=== PATIENT | male | born 1950 | race Caucasian/White ===

== ENCOUNTER 2019-12-20 17:42 | Inpatient (IN) | payer MEDICARE, MEDICAID ==
[~2019-12-20] VITALS: Ht 182.9 cm; Wt 77.2 kg
[2019-12-20] MEDS ORDERED: ACETAMINOPHEN 650 MG SUPP.RECT RC ONE ×4 (18:15→20:45)
[2019-12-20] MEDS ORDERED: ACETAMINOPHEN 325 MG SUPP RC ONE (18:15)
[2019-12-20 18:35] LABS: BASOPHILS # (AUTO) 0.1 K/uL (0.0-8.0); BASOPHILS % (AUTO) 0.4 % (0.0-2.0); EOSINOPHILS # (AUTO) 0.1 K/uL (0.0-0.7); EOSINOPHILS % (AUTO) 0.5 % (0.0-7.0); HEMATOCRIT 35.5 % (36.7-47.1); HEMOGLOBIN 11.6 g/dL (12.5-16.3); LYMPHOCYTES # (AUTO) 0.2 K/uL (20.0-40.0); LYMPHOCYTES % (AUTO) 1.6 % (20.5-51.5); MEAN CORPUSCULAR HEMOGLOBIN 31.8 uug (23.8-33.4); MEAN CORPUSCULAR HGB CONC 33 g/dL (32.5-36.3); MONOCYTES # (AUTO) 0.8 K/uL (2.0-10.0); MONOCYTES % (AUTO) 6.6 % (0.0-11.0); NEUTROPHILS # (AUTO) 10.9 K/uL (1.8-8.9); NEUTROPHILS % (AUTO) 90.9 % (38.5-71.5); PLATELET COUNT (AUTO) 155 K/uL (152-348); RED BLOOD CELL COUNT(AUTO) 3.66 MIL/uL (4.06-5.63)
[2019-12-20] MEDS ORDERED: DOCU100C36 PO (18:35)
[2019-12-20] MEDS ORDERED: GABA-532 PO (18:35)
[2019-12-20] MEDS ORDERED: FAMO-132 PO (18:35)
[2019-12-20] MEDS ORDERED: CALC-494 PO (18:35)
[2019-12-20] MEDS ORDERED: SENN-18 PO (18:35)
[2019-12-20] MEDS ORDERED: FINA5TAB11 PO (18:35)
[2019-12-20] MEDS ORDERED: AMIO200T4 PO (18:35)
[2019-12-20] MEDS ORDERED: CALC667T6 PO (18:35)
[2019-12-20] MEDS ORDERED: APIX5TAB4 PO (18:35)
[2019-12-20] MEDS ORDERED: TAMS-3 PO (18:35)
[2019-12-20] MEDS ORDERED: HYDR-4384 PO (18:35)
[2019-12-20] MEDS ORDERED: AMLO5TAB9 PO (18:35)
[2019-12-20] MEDS ORDERED: CARV3.122 PO (18:35)
[2019-12-20] MEDS ORDERED: CHOL200078 PO (18:35)
[2019-12-20] MEDS ORDERED: VIT1TABL46 PO (18:35)
[2019-12-20] MEDS ORDERED: PROT946L PO (18:35)
[2019-12-20] MEDS ORDERED: ONDA4TAB5 SL (18:35)
[2019-12-20 18:42] LABS: CREATININE 5.9 mg/dL (0.6-1.3); POTASSIUM 3.8 mmol/L (3.5-5.1)
[2019-12-20] MEDS ORDERED: ACETAMINOPHEN 325 MG SUPP ONE ×2 (18:42→20:46)
[2019-12-20 18:48] LABS: BILIRUBIN,DIRECT 0.1 mg/dL (0.0-0.2); BILIRUBIN,TOTAL 0.5 mg/dL (0.2-1.0); TOTAL PROTEIN, SERUM 7.6 g/dL (6.4-8.2)
[2019-12-20] MEDS ORDERED: IV NORMAL SALINE 1000 ML BAG IV ONE (19:15)
[2019-12-20] MEDS ORDERED: VANCOMYCIN IV 1,000 MG in IV DEXTROSE 5% 250 ML IV ONE (19:15)
[2019-12-20] MEDS ORDERED: PIPERACILLIN SODIUM/TAZOBACTAM 3.375 G in IV DEXTROSE 5% 50 ML IV ONE (19:15)
[2019-12-20] MEDS ORDERED: VANCOMYCIN IV 200 ML ONE (19:24)
[2019-12-20] MEDS ORDERED: PIPERACILLIN/TAZOBACTAM/D5W 50 ML IV ONE (19:24)
[2019-12-20] MEDS ORDERED: MORPHINE SULFATE 2 MG/1 ML DISP.SYRIN IV PRN (22:00)
[2019-12-20] MEDS ORDERED: MAGNESIUM HYDROXIDE 30 ML LIQUID UDC PO PRN (22:00)
[2019-12-20] MEDS ORDERED: Z GUARD REMEDY PASTE 57 GM TUBE TOP PRN (22:00)
[2019-12-20] MEDS ORDERED: HYDROCODONE/APAP 5-325MG TABLET PO PRN (22:00)
[2019-12-20] MEDS ORDERED: ONDANSETRON 4 MG/2 ML VIAL IV PRN (22:00)
[2019-12-20 22:20] LABS: *BILIRUBIN,URIN NEGATIVE (NEGATIVE); *CLARITY,URINE CLEAR (CLEAR); *COLOR,URINE YELLOW (YELLOW); *KETONES,URINE NEGATIVE (NEGATIVE); *UROBILINOGEN,URINE 0.2 E.U./dl (NORMAL); LEUKOCYTE ESTERASE ,URINE NEGATIVE (NEGATIVE); NITRITE, URINE NEGATIVE (NEGATIVE); PH,URINE 8.5 (5.0-8.0); UGLUCOSE TRACE (NEGATIVE)
[2019-12-20 22:28] LABS: *BLOOD, URINE TRACE (NEGATIVE)
[2019-12-20 22:29] LABS: SQUAMOUS EPITHELIAL CELL,UR MODERATE /HPF (NONE SEEN)
[2019-12-20 23:40] VITALS: BP 122/78
[2019-12-21 00:32] VITALS: BP 128/71
[2019-12-21] MEDS: ACETAMINOPHEN 325 MG TABLET PO PRN ×2 (01:25→16:33)
[2019-12-21] MEDS ORDERED: PIPERACILLIN SODIUM/TAZOBACTAM 3.375 G in IV DEXTROSE 5% 50 ML IV SCH (03:00)
[2019-12-21 04:50] VITALS: BP 103/55
[2019-12-21 06:39] LABS: BASOPHILS % (AUTO) 0.2 % (0.0-2.0); HEMATOCRIT 33.6 % (36.7-47.1); HEMOGLOBIN 11.2 g/dL (12.5-16.3); LYMPHOCYTES # (AUTO) 0.7 K/uL (20.0-40.0); LYMPHOCYTES % (AUTO) 4.3 % (20.5-51.5); MEAN CORPUSCULAR HEMOGLOBIN 32.4 uug (23.8-33.4); MEAN CORPUSCULAR HGB CONC 33 g/dL (32.5-36.3); MEAN CORPUSCULAR VOLUME 96.9 fL (73.0-96.2); MONOCYTES # (AUTO) 1.1 K/uL (2.0-10.0); MONOCYTES % (AUTO) 6.8 % (0.0-11.0); NEUTROPHILS # (AUTO) 13.8 K/uL (1.8-8.9); NEUTROPHILS % (AUTO) 88.7 % (38.5-71.5); PLATELET COUNT (AUTO) 155 K/uL (152-348); RED BLOOD CELL COUNT(AUTO) 3.46 MIL/uL (4.06-5.63); WHITE BLOOD COUNT (AUTO) 15.5 K/uL (3.6-10.2)
[2019-12-21 07:25] LABS: MAGNESIUM 1.9 mg/dL (1.8-2.4); PHOSPHOROUS 4.8 mg/dL (2.5-4.9); POTASSIUM 4.4 mmol/L (3.5-5.1)
[2019-12-21] MEDS ORDERED: PIPERACILLIN/TAZO 0.75 G in IV DEXTROSE 5% 50 ML IV PRN (07:30)
[2019-12-21 07:33] LABS: CREATININE 7.7 mg/dL (0.6-1.3)
[2019-12-21] MEDS: CALCIUM ACETATE 667 MG CAPSULE PO SCH ×3 (08:14→16:32)
[2019-12-21] MEDS: TAMSULOSIN HCL 0.4 MG CAP.SR.24H PO SCH ×2 (08:14→16:33)
[2019-12-21] MEDS: CHOLECALCIFEROL 1,000 UNIT TABLET PO SCH (08:14)
[2019-12-21] MEDS: AMIODARONE HCL 200 MG TABLET PO SCH ×2 (08:14→16:33)
[2019-12-21] MEDS: DOCUSATE SODIUM 100 MG CAPSULE PO SCH (08:14)
[2019-12-21] MEDS: FOLIC ACID/VITAMIN B COMP W-C TABLET PO SCH (08:15)
[2019-12-21] MEDS: FAMOTIDINE 20 MG TABLET PO SCH (08:15)
[2019-12-21] MEDS: FINASTERIDE 5 MG TABLET PO SCH (08:15)
[2019-12-21] MEDS: CALCIUM CARBONATE 500 MG TABLET PO SCH ×3 (08:15→16:33)
[2019-12-21] MEDS: GABAPENTIN 100 MG CAPSULE PO SCH ×3 (08:15→16:32)
[2019-12-21] MEDS: AMLODIPINE 5 MG TABLET PO SCH (08:16)
[2019-12-21] MEDS: CARVEDILOL 3.125 MG TABLET PO SCH ×2 (08:16→16:32)
[2019-12-21] MEDS: PROTEIN SUPPLEMENT (PROSTAT) 30 ML LIQUID PO SCH ×2 (08:18→16:33)
[2019-12-21] MEDS: PIPERACILLIN/TAZO 2.25 G in IV DEXTROSE 5% 50 ML IV SCH ×3 (08:20→22:04)
[2019-12-21] MEDS ORDERED: APIXABAN 5 MG TABLET PO SCH ×2 (09:00)
[2019-12-21] MEDS ORDERED: Medication Not On Formulary EA (Protein Supplement (Promod) 30 ML) PO SCH (09:00)
[2019-12-21] MEDS ORDERED: Medication Not On Formulary EA (Apixaban (Eliquis) 5 MG) PO SCH (09:00)
[2019-12-21] MEDS ORDERED: DEXTROSE 50% 50 ML DISP.SYRIN IV PRN (10:45)
[2019-12-21 11:05] VITALS: BP 134/72
[2019-12-21] MEDS: BLOOD SUGAR DIAGNOSTIC 1 EACH STRIP VI SCH ×3 (11:44→20:38)
[2019-12-21 15:14] VITALS: BP 103/61
[2019-12-21] MEDS: INSULIN REGULAR, HUMAN 300 UNIT/3 ML VIAL SQ PRN (16:30)
[2019-12-21] MEDS: APIXABAN 5 MG TABLET PO SCH (16:31)
[2019-12-21 20:00] VITALS: BP 90/47
[2019-12-21] MEDS: SENNOSIDES 1 TABLET PO SCH (20:24)
[2019-12-22] VITALS: BP 110/54
[2019-12-22 04:00] VITALS: BP 125/68
[2019-12-22] MEDS: PIPERACILLIN/TAZO 2.25 G in IV DEXTROSE 5% 50 ML IV SCH ×2 (05:37→13:05)
[2019-12-22 06:40] LABS: MAGNESIUM 2.1 mg/dL (1.8-2.4); PHOSPHOROUS 5.6 mg/dL (2.5-4.9); POTASSIUM 4.5 mmol/L (3.5-5.1)
[2019-12-22] MEDS: BLOOD SUGAR DIAGNOSTIC 1 EACH STRIP VI SCH ×4 (06:54→21:56)
[2019-12-22 07:02] LABS: BASOPHILS # (AUTO) 0.2 K/uL (0.0-8.0); BASOPHILS % (AUTO) 2.9 % (0.0-2.0); EOSINOPHILS # (AUTO) 0.2 K/uL (0.0-0.7); EOSINOPHILS % (AUTO) 3.8 % (0.0-7.0); HEMATOCRIT 32.3 % (36.7-47.1); LYMPHOCYTES # (AUTO) 0.6 K/uL (20.0-40.0); MEAN CORPUSCULAR HEMOGLOBIN 32.8 uug (23.8-33.4); MEAN CORPUSCULAR HGB CONC 34 g/dL (32.5-36.3); MEAN CORPUSCULAR VOLUME 95.8 fL (73.0-96.2); MONOCYTES # (AUTO) 0.6 K/uL (2.0-10.0); MONOCYTES % (AUTO) 10.5 % (0.0-11.0); NEUTROPHILS # (AUTO) 4.5 K/uL (1.8-8.9); NEUTROPHILS % (AUTO) 72.8 % (38.5-71.5); PLATELET COUNT (AUTO) 154 K/uL (152-348); RED BLOOD CELL COUNT(AUTO) 3.37 MIL/uL (4.06-5.63); WHITE BLOOD COUNT (AUTO) 6.1 K/uL (3.6-10.2)
[2019-12-22] MEDS: FAMOTIDINE 20 MG TABLET PO SCH (08:40)
[2019-12-22] MEDS: TAMSULOSIN HCL 0.4 MG CAP.SR.24H PO SCH ×2 (08:41→17:05)
[2019-12-22] MEDS: DOCUSATE SODIUM 100 MG CAPSULE PO SCH (08:41)
[2019-12-22] MEDS: CALCIUM ACETATE 667 MG CAPSULE PO SCH ×3 (08:41→17:05)
[2019-12-22] MEDS: CHOLECALCIFEROL 1,000 UNIT TABLET PO SCH (08:41)
[2019-12-22] MEDS: FOLIC ACID/VITAMIN B COMP W-C TABLET PO SCH (08:41)
[2019-12-22] MEDS: GABAPENTIN 100 MG CAPSULE PO SCH ×3 (08:42→17:04)
[2019-12-22] MEDS: FINASTERIDE 5 MG TABLET PO SCH (08:42)
[2019-12-22] MEDS: CALCIUM CARBONATE 500 MG TABLET PO SCH ×3 (08:42→17:05)
[2019-12-22] MEDS: AMLODIPINE 5 MG TABLET PO SCH (08:44)
[2019-12-22] MEDS: AMIODARONE HCL 200 MG TABLET PO SCH ×2 (08:44→17:03)
[2019-12-22] MEDS: CARVEDILOL 3.125 MG TABLET PO SCH ×2 (08:45→17:05)
[2019-12-22] MEDS: PROTEIN SUPPLEMENT (PROSTAT) 30 ML LIQUID PO SCH ×2 (08:46→17:07)
[2019-12-22] MEDS: APIXABAN 5 MG TABLET PO SCH ×2 (08:49→17:06)
[2019-12-22 09:11] LABS: CREATININE 10.4 mg/dL (0.6-1.3)
[2019-12-22 11:06] VITALS: BP 115/53
[2019-12-22] MEDS: INSULIN REGULAR, HUMAN 300 UNIT/3 ML VIAL SQ PRN ×2 (12:12→17:08)
[2019-12-22] MEDS ORDERED: VANCOMYCIN IV 500 MG in IV DEXTROSE 5% 100 ML IV ONE (13:00)
[2019-12-22] MEDS: MUPIROCIN 2% OINT 22 GM TUBE NS SCH ×2 (14:03→20:12)
[2019-12-22 15:04] VITALS: BP 113/64
[2019-12-22] MEDS ORDERED: CEFEPIME HCL 1 G in IV DEXTROSE 5% 50 ML IV ONE (20:00)
[2019-12-22 20:22] VITALS: BP 112/62
[2019-12-22] MEDS: SENNOSIDES 1 TABLET PO SCH (20:27)
[2019-12-22] MEDS ORDERED: MUPIROCIN 2% OINT 22 GM TUBE NS SCH (21:00)
[2019-12-22] MEDS: INSULIN REGULAR, HUMAN 300 UNITS/3 ML VIAL SQ PRN (22:11)
[2019-12-23] VITALS: BP 138/74
[2019-12-23] MEDS ORDERED: VANCOMYCIN IV 500 MG in IV DEXTROSE 5% 100 ML IV ONE ×2
[2019-12-23 04:00] VITALS: BP 109/56
[2019-12-23] MEDS: BLOOD SUGAR DIAGNOSTIC 1 EACH STRIP VI SCH ×4 (07:59→21:04)
[2019-12-23] MEDS: MUPIROCIN 2% OINT 22 GM TUBE NS SCH ×2 (08:41→20:53)
[2019-12-23] MEDS: CALCIUM ACETATE 667 MG CAPSULE PO SCH ×3 (08:43→17:09)
[2019-12-23] MEDS: CHOLECALCIFEROL 1,000 UNIT TABLET PO SCH (08:44)
[2019-12-23] MEDS: FAMOTIDINE 20 MG TABLET PO SCH (08:44)
[2019-12-23] MEDS: TAMSULOSIN HCL 0.4 MG CAP.SR.24H PO SCH ×2 (08:44→16:34)
[2019-12-23] MEDS: GABAPENTIN 100 MG CAPSULE PO SCH ×3 (08:44→16:34)
[2019-12-23] MEDS: FOLIC ACID/VITAMIN B COMP W-C TABLET PO SCH (08:44)
[2019-12-23] MEDS: CALCIUM CARBONATE 500 MG TABLET PO SCH ×3 (08:44→17:09)
[2019-12-23] MEDS: FINASTERIDE 5 MG TABLET PO SCH (08:44)
[2019-12-23] MEDS: DOCUSATE SODIUM 100 MG CAPSULE PO SCH (08:44)
[2019-12-23] MEDS: AMLODIPINE 5 MG TABLET PO SCH (08:46)
[2019-12-23] MEDS: CARVEDILOL 3.125 MG TABLET PO SCH ×2 (08:46→16:35)
[2019-12-23] MEDS: AMIODARONE HCL 200 MG TABLET PO SCH ×2 (08:46→16:35)
[2019-12-23] MEDS: APIXABAN 5 MG TABLET PO SCH ×2 (08:51→16:34)
[2019-12-23] MEDS: PROTEIN SUPPLEMENT (PROSTAT) 30 ML LIQUID PO SCH ×2 (09:07→16:35)
[2019-12-23 11:10] LABS: MAGNESIUM 2.4 mg/dL (1.8-2.4); PHOSPHOROUS 5.6 mg/dL (2.5-4.9); POTASSIUM 4.8 mmol/L (3.5-5.1)
[2019-12-23 11:16] LABS: CREATININE 12.6 mg/dL (0.6-1.3)
[2019-12-23 11:29] VITALS: BP 105/53
[2019-12-23 11:32] LABS: BASOPHILS % (AUTO) 0.6 % (0.0-2.0); EOSINOPHILS # (AUTO) 0.4 K/uL (0.0-0.7); EOSINOPHILS % (AUTO) 8.5 % (0.0-7.0); HEMATOCRIT 30.5 % (36.7-47.1); HEMOGLOBIN 10.2 g/dL (12.5-16.3); LYMPHOCYTES # (AUTO) 0.7 K/uL (20.0-40.0); MEAN CORPUSCULAR HEMOGLOBIN 32.5 uug (23.8-33.4); MEAN CORPUSCULAR HGB CONC 34 g/dL (32.5-36.3); MEAN CORPUSCULAR VOLUME 97.1 fL (73.0-96.2); MONOCYTES # (AUTO) 0.7 K/uL (2.0-10.0); MONOCYTES % (AUTO) 13.9 % (0.0-11.0); PLATELET COUNT (AUTO) 164 K/uL (152-348); RED BLOOD CELL COUNT(AUTO) 3.14 MIL/uL (4.06-5.63); WHITE BLOOD COUNT (AUTO) 4.9 K/uL (3.6-10.2)
[2019-12-23] MEDS: INSULIN REGULAR, HUMAN 300 UNIT/3 ML VIAL SQ PRN ×2 (12:19→17:11)
[2019-12-23 15:36] VITALS: BP 119/68
[2019-12-23] MEDS ORDERED: CEFEPIME HCL 0.5 G in IV DEXTROSE 5% 50 ML IV SCH (20:00)
[2019-12-23 20:30] VITALS: BP 134/73
[2019-12-23] MEDS: SENNOSIDES 1 TABLET PO SCH (20:51)
[2019-12-23] MEDS: INSULIN REGULAR, HUMAN 300 UNITS/3 ML VIAL SQ PRN (21:11)
[2019-12-24 06:35] VITALS: BP 140/77
[2019-12-24] MEDS: BLOOD SUGAR DIAGNOSTIC 1 EACH STRIP VI SCH ×2 (06:54→11:20)
[2019-12-24 07:21] LABS: BASOPHILS % (AUTO) 0.7 % (0.0-2.0); EOSINOPHILS # (AUTO) 0.3 K/uL (0.0-0.7); EOSINOPHILS % (AUTO) 7.1 % (0.0-7.0); HEMATOCRIT 31.6 % (36.7-47.1); HEMOGLOBIN 10.6 g/dL (12.5-16.3); LYMPHOCYTES # (AUTO) 1.2 K/uL (20.0-40.0); LYMPHOCYTES % (AUTO) 25.3 % (20.5-51.5); MEAN CORPUSCULAR HEMOGLOBIN 32.2 uug (23.8-33.4); MEAN CORPUSCULAR HGB CONC 34 g/dL (32.5-36.3); MONOCYTES # (AUTO) 0.8 K/uL (2.0-10.0); MONOCYTES % (AUTO) 17.2 % (0.0-11.0); NEUTROPHILS # (AUTO) 2.3 K/uL (1.8-8.9); NEUTROPHILS % (AUTO) 49.7 % (38.5-71.5); PLATELET COUNT (AUTO) 175 K/uL (152-348); RED BLOOD CELL COUNT(AUTO) 3.29 MIL/uL (4.06-5.63); WHITE BLOOD COUNT (AUTO) 4.6 K/uL (3.6-10.2)
[2019-12-24 07:34] LABS: MAGNESIUM 2.5 mg/dL (1.8-2.4); PHOSPHOROUS 4.4 mg/dL (2.5-4.9); POTASSIUM 5.1 mmol/L (3.5-5.1)
[2019-12-24 07:39] LABS: CREATININE 10.3 mg/dL (0.6-1.3)
[2019-12-24 07:59] LABS: EOSINOPHILS % (MANUAL) 5 % (0-8); LYMPHOCYTES % (MANUAL) 31 % (20-40); MONOCYTES % (MANUAL) 13 % (2-10); NEUTROPHILS % (MANUAL) 51 % (42-75)
[2019-12-24] MEDS: DOCUSATE SODIUM 100 MG CAPSULE PO SCH (08:33)
[2019-12-24] MEDS: TAMSULOSIN HCL 0.4 MG CAP.SR.24H PO SCH (08:34)
[2019-12-24] MEDS: FOLIC ACID/VITAMIN B COMP W-C TABLET PO SCH (08:34)
[2019-12-24] MEDS: FINASTERIDE 5 MG TABLET PO SCH (08:34)
[2019-12-24] MEDS: GABAPENTIN 100 MG CAPSULE PO SCH ×2 (08:34→12:01)
[2019-12-24] MEDS: CALCIUM ACETATE 667 MG CAPSULE PO SCH ×2 (08:34→11:50)
[2019-12-24] MEDS: PROTEIN SUPPLEMENT (PROSTAT) 30 ML LIQUID PO SCH (08:34)
[2019-12-24] MEDS: FAMOTIDINE 20 MG TABLET PO SCH (08:34)
[2019-12-24] MEDS: CHOLECALCIFEROL 1,000 UNIT TABLET PO SCH (08:34)
[2019-12-24] MEDS: CALCIUM CARBONATE 500 MG TABLET PO SCH ×2 (08:34→11:50)
[2019-12-24] MEDS ORDERED: RXVAN XX (08:35)
[2019-12-24] MEDS: AMLODIPINE 5 MG TABLET PO SCH (08:36)
[2019-12-24] MEDS: AMIODARONE HCL 200 MG TABLET PO SCH (08:36)
[2019-12-24] MEDS: CARVEDILOL 3.125 MG TABLET PO SCH (08:36)
[2019-12-24] MEDS: MUPIROCIN 2% OINT 22 GM TUBE NS SCH (08:37)
[2019-12-24] MEDS: APIXABAN 5 MG TABLET PO SCH (08:41)
[2019-12-24 11:27] VITALS: BP 131/66
[2019-12-24] MEDS: INSULIN REGULAR, HUMAN 300 UNIT/3 ML VIAL SQ PRN (12:01)
[2019-12-25 08:06] LABS: HEPATITIS B SURFACE AB Reactive (.); HEPATITIS B SURFACE AG Negative (Negative)
== END 2019-12-24 15:10 | DRG 871 ==
LOC: ER 17:46 → TELE3 21:58 → MEDSURG3 12-23 18:31
PROVIDERS: ADMIT Hospitalist; ATTEND Hospitalist
PROC: 5A1D70Z Performance of Urinary Filtration, Intermittent, Less than 6 Hours Per Day (ICD-10-PCS; principal; 2019-12-23)
DX: A41.02 Sepsis due to Methicillin resistant Staphylococcus aureus (principal); G92 Toxic encephalopathy; N18.6 End stage renal disease; I13.2 Hypertensive heart and chronic kidney disease with heart failure and with stage 5 chronic kidney disease, or end stage renal disease; I50.32 Chronic diastolic (congestive) heart failure; E87.1 Hypo-osmolality and hyponatremia; Z99.2 Dependence on renal dialysis; Z22.322 Carrier or suspected carrier of Methicillin resistant Staphylococcus aureus; E11.42 Type 2 diabetes mellitus with diabetic polyneuropathy; E11.65 Type 2 diabetes mellitus with hyperglycemia; E86.1 Hypovolemia; E11.22 Type 2 diabetes mellitus with diabetic chronic kidney disease; D63.8 Anemia in other chronic diseases classified elsewhere; I25.10 Atherosclerotic heart disease of native coronary artery without angina pectoris; I48.91 Unspecified atrial fibrillation; Z79.01 Long term (current) use of anticoagulants; Z88.0 Allergy status to penicillin; N40.0 Benign prostatic hyperplasia without lower urinary tract symptoms; I70.0 Atherosclerosis of aorta
CPT/HCPCS: 36415; 70030-TC; 70450; 71045; 83605; 83735; 84100; 84443; 85025; 85730; 86706; 86803; 87040; 87077; 87086; 87340; 87400; 90937; 93005; A4663; C1758; G0378; J0692; J1815; J2543; J3370; J7040; J7050; J7060

== ENCOUNTER 2020-11-04 18:15 | Inpatient (IN) | payer MEDICARE, OTHER ==
[~2020-11-04] VITALS: Ht 175.3 cm; Wt 83.1 kg
[~2020-11-04 18:15] MED LIST: ACET-2154 PO; ALBU2.5V13 IH; AMIO200T5 PO; CALC-494 PO; CALC667T6 PO; DOCU100C36 PO; EPOE1VIA6 IJ; FINA5TAB11 PO; GABA-532 PO; HUM100IN SQ; INSU100C4 SQ; INSU100I43 SQ; MAGN400O6 PO; MERO500V21 IV; NALO0.4V2 IJ; NITR0.4T SL; PROT946L PO; TAMS-3 PO; VIT1TABL46 PO; ZINC1CAP2 PO
--- NOTE | 2020-11-04 18:47 | NUR ---
Dr [email or web address], medical screening exam in progress
[2020-11-04] MEDS ORDERED: ASPI81TA31 PO (18:52)
[2020-11-04] MEDS ORDERED: CEFTRIAXONE 1 G in IV DEXTROSE 5% 50 ML IV ONE (19:00)
--- NOTE | 2020-11-04 19:11 | NUR ---
Patient is for blood draw, COVID-19 swab & urine specimen collection, endorsed to 7pm nurse Atul Orona accordingly
[2020-11-04 19:51] LABS: CARBON DIOXIDE 31 mmol/L (21-32); CHLORIDE 97 mmol/L (98-107); GLUCOSE 110 mg/dL (74-106); POTASSIUM 6.1 mmol/L (3.5-5.1); UREA NITROGEN, BLOOD 60 mg/dL (7-18)
[2020-11-04 19:56] LABS: BASOPHILS % (AUTO) 0.5 % (0.0-2.0); EOSINOPHILS % (AUTO) 0.8 % (0.0-7.0); HEMATOCRIT 37.9 % (36.7-47.1); HEMOGLOBIN 12.3 g/dL (12.5-16.3); LYMPHOCYTES # (AUTO) 0.9 K/uL (20.0-40.0); LYMPHOCYTES % (AUTO) 14.8 % (20.5-51.5); MEAN CORPUSCULAR HEMOGLOBIN 29.5 uug (23.8-33.4); MEAN CORPUSCULAR HGB CONC 32 g/dL (32.5-36.3); MEAN CORPUSCULAR VOLUME 90.9 fL (73.0-96.2); MONOCYTES % (AUTO) 17.4 % (0.0-11.0); NEUTROPHILS % (AUTO) 66.5 % (38.5-71.5); PLATELET COUNT (AUTO) 225 K/uL (152-348); RED BLOOD CELL COUNT(AUTO) 4.17 MIL/uL (4.06-5.63)
[2020-11-04 19:59] LABS: CREATININE 10.2 mg/dL (0.6-1.3)
[2020-11-04] MEDS ORDERED: AZITHROMYCIN IV 500 MG in IV DEXTROSE 5% 250 ML IV ONE (20:00)
[2020-11-04 20:10] LABS: ALANINE AMINOTRANSFERASE 41 U/L (16-63); ALKALINE PHOSPHATASE 74 U/L (50-136); ASPARTATE AMINOTRANSFERASE 18 U/L (15-37); BILIRUBIN,TOTAL 0.8 mg/dL (0.2-1.0); FERRITIN 889 ng/mL (26-388); LACTATE DEHYDROGENASE 174 U/L (85-227); TOTAL PROTEIN, SERUM 6.8 g/dL (6.4-8.2)
[2020-11-04 20:11] LABS: CREATINE KINASE, TOTAL 44 U/L (39-308)
[2020-11-04] MEDS ORDERED: CEFTRIAXONE 1 G VIAL ONE (20:41)
[2020-11-04] MEDS ORDERED: MEROPENEM 500MG/NS 50ML PB ***ER PYXIS ONLY IV ONE (20:42)
[2020-11-04] MEDS ORDERED: AZITHROMYCIN 500MG/ D5W 250ML IVPB **ER PYXIS ONLY IV ONE (20:42)
--- NOTE | 2020-11-04 20:52 | NUR ---
Eloisa Car DNP paged, and called back to discuss patient case for inpatient admission.
[2020-11-04] MEDS ORDERED: SODIUM BICARBONATE 8.4% 50 MEQ/50 ML VIAL IV ONE (21:00)
[2020-11-04] MEDS ORDERED: HYDROCODONE/APAP 5-325MG TABLET PO PRN (21:00)
[2020-11-04] MEDS: HEPARIN SODIUM,PORCINE 5,000 UNITS/ML VIAL SQ SCH (21:00)
[2020-11-04] MEDS ORDERED: SODIUM POLYSTYRENE SULFONATE 15 G/60 ML LIQUID UDC PO ONE (21:00)
[2020-11-04] MEDS ORDERED: DEXTROSE 50% 50 ML DISP.SYRIN IV ONE (21:00)
[2020-11-04] MEDS ORDERED: INSULIN REGULAR, HUMAN 300 UNIT/3 ML VIAL IV ONE (21:00)
[2020-11-04] MEDS ORDERED: ONDANSETRON 4 MG/2 ML VIAL IV PRN (21:00)
[2020-11-04] MEDS: MEROPENEM 500 MG in IV NORMAL SALINE 50 ML IV SCH (21:13)
[2020-11-04] MEDS ORDERED: CALCIUM GLUCONATE IV 1 GM in IV DEXTROSE 5% 50 ML IV ONE (21:15)
--- NOTE | 2020-11-04 21:17 | NUR ---
Patient will be going to 306, bed is not clean per DIVINE Dhillon. She will have room prepared stat.
[2020-11-04 21:27] LABS: *BILIRUBIN,URIN NEGATIVE (NEGATIVE); *BLOOD, URINE 3+ (NEGATIVE); *CLARITY,URINE CLOUDY (CLEAR); *COLOR,URINE PINK (YELLOW); *KETONES,URINE NEGATIVE (NEGATIVE); *UROBILINOGEN,URINE 0.2 E.U./dl (NORMAL); LEUKOCYTE ESTERASE ,URINE 3+ (NEGATIVE); NITRITE, URINE NEGATIVE (NEGATIVE); UGLUCOSE NEGATIVE (NEGATIVE)
[2020-11-04] MEDS ORDERED: CALCIUM GLUCONATE 1 GM/10 ML VIAL IV ONE (21:39)
[2020-11-04] MEDS ORDERED: SODIUM BICARBONATE 8.4% 50 MEQ/50 ML DISP.SYRIN IV ONE (21:40)
--- NOTE | 2020-11-04 22:09 | NUR ---
Patient oral temp is 101.4F. ERMD aware, and stated to administer 1G of acetaminophen.
[2020-11-04] MEDS ORDERED: ACETAMINOPHEN ES 500 MG TABLET PO ONE (22:15)
[2020-11-04] MEDS ORDERED: ACETAMINOPHEN ES 500 MG TABLET ONE (22:16)
--- NOTE | 2020-11-04 22:41 | NUR ---
Report given to DIVINE Luna for TELE admission.
--- NOTE | 2020-11-04 23:21 | NUR ---
Patient transported to TELE in stable condition.
--- NOTE | 2020-11-04 23:23 | NUR ---
RECEIVED PT FROM ER VIA MG. DX: UTI UNDER THE CARE OF HUSSEIN BARBOUR. PT IN NO ACUTE DISTRESS. PT ON 2L NASAL CANNULA. ADMISSION PROCESS AND PROCESS PLAN INITIATED. HEMODIALYSIS CONSENT FORM SIGNED. BELONGING LIST SIGNED. POLST IN CHART AND PT IS FULL CODE.PT HAS LEFT UPPER ARM AV SHUNT- THRILL AND BRUIT NOTED. IV SITE ON RIGHT HAND 20G AND RIGHT FA 20G. LONG TERM ASSESSMENT DONE.SAFETY AND COMFORT PROVIDED. WILL CONTINUE TO MONITOR.
--- NOTE | 2020-11-04 23:24 | NUR ---
PT FEBRILE WITH 100.3F . COOLING MEASURES DONE. TYLENOL WAS JUST GIVEN IN ER.
[2020-11-04 23:26] VITALS: BP 99/51
[2020-11-04] MEDS: IV NS 1000 ML 1,000 ML IV PRN (23:37)
[2020-11-05 00:30] LABS: BAND % (MANUAL) 7 % (0-10); LYMPHOCYTES % (MANUAL) 22 % (20-40); MONOCYTES % (MANUAL) 7 % (2-10); NEUTROPHILS % (MANUAL) 64 % (42-75)
[2020-11-05] MEDS: ACETAMINOPHEN 325 MG TABLET PO PRN ×2 (02:08→11:11)
[2020-11-05 03:45] LABS: RBC,URINE TNTC /HPF (0-3)
[2020-11-05 03:46] LABS: BACTERIA,URINE MANY /HPF (NONE SEEN); SQUAMOUS EPITHELIAL CELL,UR NONE SEEN /HPF (NONE SEEN); WBC,URINE TNTC /HPF (0-3)
[2020-11-05 04:03] VITALS: BP 120/59
--- NOTE | 2020-11-05 06:50 | NUR ---
PT SLEPT INTERMITTENTLY. PT IV INTACT. PT 2L ON 99%. PT IN NO ACUTE DISTRESS. PT NOTED TO HAVE CHILLS. GIVEN TYLENOL PRN LAST NIGHT. PT AFEBRILE AT 98.5 fAHRENHEIT.PRESCRIBED MEDICATION GIVEN AND PT TOLERATED IT WELL. PT CONTINENT. SAFETY AND COMFORT PROVIDED. ALL NEEDS ARE MET. WILL ENDORSE TO INCOMING NURSE FOR CONTINUITY OF CARE.
[2020-11-05 07:41] LABS: BASOPHILS % (AUTO) 0.6 % (0.0-2.0); EOSINOPHILS % (AUTO) 0.5 % (0.0-7.0); HEMATOCRIT 32.2 % (36.7-47.1); HEMOGLOBIN 10.6 g/dL (12.5-16.3); LYMPHOCYTES # (AUTO) 0.5 K/uL (20.0-40.0); LYMPHOCYTES % (AUTO) 11.3 % (20.5-51.5); MEAN CORPUSCULAR HEMOGLOBIN 29.9 uug (23.8-33.4); MEAN CORPUSCULAR HGB CONC 33 g/dL (32.5-36.3); MEAN CORPUSCULAR VOLUME 90.8 fL (73.0-96.2); MONOCYTES # (AUTO) 1.1 K/uL (2.0-10.0); MONOCYTES % (AUTO) 25.1 % (0.0-11.0); NEUTROPHILS # (AUTO) 2.6 K/uL (1.8-8.9); NEUTROPHILS % (AUTO) 62.5 % (38.5-71.5); PLATELET COUNT (AUTO) 185 K/uL (152-348); RED BLOOD CELL COUNT(AUTO) 3.54 MIL/uL (4.06-5.63); WHITE BLOOD COUNT (AUTO) 4.2 K/uL (3.6-10.2)
[2020-11-05 07:50] LABS: CARBON DIOXIDE 31 mmol/L (21-32); CHLORIDE 98 mmol/L (98-107); CHOLESTEROL 120 mg/dL (<200); GLUCOSE 81 mg/dL (74-106); HDL CHOLESTEROL 45 mg/dL (40-60); MAGNESIUM 2.2 mg/dL (1.8-2.4); PHOSPHOROUS 4.4 mg/dL (2.5-4.9); TRIGLYCERIDES 43 MG/DL (30-150); UREA NITROGEN, BLOOD 68 mg/dL (7-18)
[2020-11-05 08:17] LABS: CREATININE 10.9 mg/dL (0.6-1.3); POTASSIUM 6.2 mmol/L (3.5-5.1)
[2020-11-05 08:25] LABS: ABG BASE EXCESS 3.2 mmol/L; ABG PCO2 33.8 mmHg (35.0-45.0); ABG PH 7.504 (7.350-7.450); ABG PO2 66.3 mmHg (75.0-100.0); ABG SITE RIGHT RADIAL; ABG TOTAL HEMOGLOBIN 12.1 G/dL (13.5-18.0); MetHb 0.1 % (0.0-1.5); O2Hb 91.6 % (94.0-97.0); VENT MODE ROOM AIR
[2020-11-05] MEDS: MEROPENEM 500 MG in IV NORMAL SALINE 50 ML IV SCH ×2 (08:34→20:26)
[2020-11-05] MEDS: HEPARIN SODIUM,PORCINE 5,000 UNITS/ML VIAL SQ SCH ×2 (08:43→22:07)
--- NOTE | 2020-11-05 09:12 | NUR ---
Informed Eloisa Car MERCHANDISE FLOW TEAM LEADER regarding potassium and creatinine results with no new order at this time. Reminded MERCHANDISE FLOW TEAM LEADER about medication reconciliation and said OK.
[2020-11-05 11:36] VITALS: BP 138/75
[2020-11-05] MEDS ORDERED: DOCUSATE SODIUM 100 MG CAPSULE PO PRN (13:45)
[2020-11-05] MEDS ORDERED: ALBUTEROL SULFATE 2.5 MG/ 0.5 ML NEBU IH PRN (13:45)
[2020-11-05] MEDS: ASPIRIN 81 MG TAB.CHEW PO SCH (14:47)
[2020-11-05] MEDS: FOLIC ACID/VITAMIN B COMP W-C TABLET PO SCH (14:47)
[2020-11-05] MEDS: FINASTERIDE 5 MG TABLET PO SCH (14:47)
[2020-11-05] MEDS: GABAPENTIN 100 MG CAPSULE PO SCH ×2 (14:47→17:53)
[2020-11-05] MEDS: CALCIUM ACETATE 667 MG CAPSULE PO SCH ×2 (14:47→17:53)
[2020-11-05] MEDS: AMIODARONE HCL 200 MG TABLET PO SCH (14:48)
[2020-11-05] MEDS: ZINC SULFATE 220 MG CAPSULE PO SCH (14:56)
[2020-11-05 15:44] VITALS: BP 144/71
--- NOTE | 2020-11-05 18:45 | NUR ---
Patient remains alert, oriented x 4, not in any form of distress on 2LPM via nasal cannula. No complain of any pain or discomfort. Hemodialysis done today removed 2L of fluid. Noted with episode of fever, given PRN tylenol as ordered with noted decrease in temperature. Needs attended to promptly. Call light and frequently used items placed within patient's reach. Will endorse accordingly.
--- NOTE | 2020-11-05 19:30 | NUR ---
Received pt awake and alert in bed. Denies any pain at this time. No SOB, pt is on 2L NC. SR on monitor. Will continue to monitor.
[2020-11-05 20:00] VITALS: BP 141/66
[2020-11-05] MEDS: TAMSULOSIN HCL 0.4 MG CAP.SR.24H PO SCH (22:04)
[2020-11-06 05:20] VITALS: BP 134/68
[2020-11-06 06:35] LABS: HEPATITIS B SURFACE AB Reactive (.); HEPATITIS B SURFACE AG Negative (Negative)
[2020-11-06] MEDS: CALCIUM ACETATE 667 MG CAPSULE PO SCH ×3 (07:05→18:10)
[2020-11-06] MEDS: MEROPENEM 500 MG in IV NORMAL SALINE 50 ML IV SCH ×2 (07:19→21:40)
[2020-11-06] MEDS: HEPARIN SODIUM,PORCINE 5,000 UNITS/ML VIAL SQ SCH ×2 (08:58→21:16)
[2020-11-06] MEDS: FOLIC ACID/VITAMIN B COMP W-C TABLET PO SCH (08:59)
[2020-11-06] MEDS: FINASTERIDE 5 MG TABLET PO SCH (08:59)
[2020-11-06] MEDS: ZINC SULFATE 220 MG CAPSULE PO SCH (08:59)
[2020-11-06] MEDS: ASPIRIN 81 MG TAB.CHEW PO SCH (08:59)
[2020-11-06] MEDS: GABAPENTIN 100 MG CAPSULE PO SCH (09:00)
[2020-11-06] MEDS: AMIODARONE HCL 200 MG TABLET PO SCH (09:00)
--- NOTE | 2020-11-06 09:45 | NUR ---
Pt is awake and alert in bed. Tolerated all medications well. Denies any discomfort at this time. On 2L NC and denies SOB. Will continue to monitor
[2020-11-06 10:31] LABS: BASOPHILS % (AUTO) 0.8 % (0.0-2.0); EOSINOPHILS # (AUTO) 0.2 K/uL (0.0-0.7); EOSINOPHILS % (AUTO) 5.8 % (0.0-7.0); HEMATOCRIT 29.8 % (36.7-47.1); HEMOGLOBIN 9.7 g/dL (12.5-16.3); LYMPHOCYTES # (AUTO) 0.7 K/uL (20.0-40.0); MEAN CORPUSCULAR HEMOGLOBIN 29.8 uug (23.8-33.4); MEAN CORPUSCULAR HGB CONC 33 g/dL (32.5-36.3); MONOCYTES # (AUTO) 0.8 K/uL (2.0-10.0); MONOCYTES % (AUTO) 23.7 % (0.0-11.0); NEUTROPHILS # (AUTO) 1.7 K/uL (1.8-8.9); NEUTROPHILS % (AUTO) 49.7 % (38.5-71.5); PLATELET COUNT (AUTO) 202 K/uL (152-348); RED BLOOD CELL COUNT(AUTO) 3.27 MIL/uL (4.06-5.63); WHITE BLOOD COUNT (AUTO) 3.5 K/uL (3.6-10.2)
[2020-11-06 10:33] LABS: CARBON DIOXIDE 30 mmol/L (21-32); CHLORIDE 102 mmol/L (98-107); GLUCOSE 77 mg/dL (74-106); MAGNESIUM 2.2 mg/dL (1.8-2.4); POTASSIUM 5.3 mmol/L (3.5-5.1); UREA NITROGEN, BLOOD 55 mg/dL (7-18)
[2020-11-06 10:44] LABS: CREATININE 9.6 mg/dL (0.6-1.3)
[2020-11-06 12:00] VITALS: BP 133/59
[2020-11-06 13:04] LABS: BAND % (MANUAL) 2 % (0-10); EOSINOPHILS % (MANUAL) 3 % (0-8); LYMPHOCYTES % (MANUAL) 32 % (20-40); MONOCYTES % (MANUAL) 10 % (2-10); NEUTROPHILS % (MANUAL) 53 % (42-75)
[2020-11-06] MEDS: IV NS 1000 ML 1,000 ML IV PRN (14:17)
--- NOTE | 2020-11-06 14:30 | NUR ---
Pt in bed resting. D/C off tele to Ms status. Pt is stable. On 2L NC with no s/s of respiratory distress. Denies any pain at this time. Some swelling noted in Right hand Hand has been elevated on pillows with seemed to be helping. Will endorse to oncoming nurse.
[2020-11-06 16:00] VITALS: BP 138/56
[2020-11-06] MEDS ORDERED: GABAPENTIN 300 MG CAPSULE PO SCH (16:00)
[2020-11-06 18:28] LABS: NEUTROPHILS % (MANUAL) 0 % (42-75)
--- NOTE | 2020-11-06 18:30 | NUR ---
Saline lock accidentally pulled out. Patient requested not to reinsert at this time. Endorsed for further care. Hemodialysis clarified to be done tomorrow
[2020-11-06 20:38] VITALS: BP 124/55
[2020-11-06] MEDS: TAMSULOSIN HCL 0.4 MG CAP.SR.24H PO SCH (21:15)
--- NOTE | 2020-11-06 23:22 | NUR ---
Received pt resting in bed and watching tv. AAO x4. No acute distress noted. Denies pain/ discomfort. Inserted IV on right upper arm gauge 20, on Merrem and IV NS. Pt has left AV fistula. Due med given as ordered. Safety measures maintained. Call light and personal items within reach. Will continue to monitor.
[2020-11-07 05:23] VITALS: BP 154/74
[2020-11-07 07:16] LABS: BASOPHILS % (AUTO) 0.6 % (0.0-2.0); EOSINOPHILS # (AUTO) 0.3 K/uL (0.0-0.7); HEMATOCRIT 28.1 % (36.7-47.1); HEMOGLOBIN 9.6 g/dL (12.5-16.3); LYMPHOCYTES # (AUTO) 0.8 K/uL (20.0-40.0); LYMPHOCYTES % (AUTO) 20.6 % (20.5-51.5); MEAN CORPUSCULAR HGB CONC 34 g/dL (32.5-36.3); MEAN CORPUSCULAR VOLUME 90.6 fL (73.0-96.2); MONOCYTES # (AUTO) 0.7 K/uL (2.0-10.0); NEUTROPHILS % (AUTO) 52.8 % (38.5-71.5); PLATELET COUNT (AUTO) 204 K/uL (152-348); WHITE BLOOD COUNT (AUTO) 3.8 K/uL (3.6-10.2)
[2020-11-07 07:18] LABS: CARBON DIOXIDE 27 mmol/L (21-32); CHLORIDE 105 mmol/L (98-107); GLUCOSE 104 mg/dL (74-106); MAGNESIUM 2.1 mg/dL (1.8-2.4); POTASSIUM 5.6 mmol/L (3.5-5.1); UREA NITROGEN, BLOOD 65 mg/dL (7-18)
--- NOTE | 2020-11-07 07:30 | NUR ---
Received patient on bed AOx2-3, patient calm cooperative, patient on IVF on R upper Arm of NS running at 50ml/hr, patient has Left AV fistula, patient pleasant to talk with, denies any pain and discomfort at this time
[2020-11-07 07:41] LABS: CREATININE 10.5 mg/dL (0.6-1.3)
[2020-11-07] MEDS: FINASTERIDE 5 MG TABLET PO SCH (08:08)
[2020-11-07] MEDS: ZINC SULFATE 220 MG CAPSULE PO SCH (08:08)
[2020-11-07] MEDS: FOLIC ACID/VITAMIN B COMP W-C TABLET PO SCH (08:08)
[2020-11-07] MEDS: CALCIUM ACETATE 667 MG CAPSULE PO SCH ×3 (08:08→17:02)
[2020-11-07] MEDS: ASPIRIN 81 MG TAB.CHEW PO SCH (08:08)
[2020-11-07] MEDS: AMIODARONE HCL 200 MG TABLET PO SCH (08:15)
[2020-11-07] MEDS: HEPARIN SODIUM,PORCINE 5,000 UNITS/ML VIAL SQ SCH ×2 (08:18→20:18)
--- NOTE | 2020-11-07 08:30 | NUR ---
Patient started his Dialysis at bedside
[2020-11-07 11:27] VITALS: BP 107/42
--- NOTE | 2020-11-07 13:52 | NUR ---
patient done with dialysis, patient tolerated procedure
[2020-11-07] MEDS ORDERED: PHENAZOPYRIDINE HCL 100 MG TABLET PO PRN (14:15)
[2020-11-07] MEDS: IV NS 1000 ML 1,000 ML IV PRN (14:44)
--- NOTE | 2020-11-07 15:00 | NUR ---
Started IVF NS 0.9% as ordered
[2020-11-07 16:09] VITALS: BP 159/71
[2020-11-07] MEDS: MEROPENEM 500 MG in IV NORMAL SALINE 50 ML IV SCH (20:09)
--- NOTE | 2020-11-07 20:09 | NUR ---
NSG:Received pt awake and alert Lying in bed. plesant upon approach. Denies any pain at this time. No SOB, pt is on 2L NC. Will continue to monitor.
[2020-11-07] MEDS: TAMSULOSIN HCL 0.4 MG CAP.SR.24H PO SCH (20:17)
[2020-11-07 20:28] VITALS: BP 160/67
[2020-11-07 21:01] VITALS: BP_SYST 155; BP_SYST 160; BP_DIAS 67; BP_DIAS 70
[2020-11-07] MEDS: hydrALAZINE HCL 10 MG TABLET PO PRN (22:15)
[2020-11-08 05:25] VITALS: BP 157/65
[2020-11-08] MEDS: hydrALAZINE HCL 10 MG TABLET PO PRN (06:42)
--- NOTE | 2020-11-08 06:56 | NUR ---
nsg: remain calm and cooperative. b/p >150 hydralazine 10 mg po prn given. no c/o pain or discomfort at this time. resting in bed comfortably.
[2020-11-08 08:10] LABS: BASOPHILS % (AUTO) 0.4 % (0.0-2.0); EOSINOPHILS # (AUTO) 0.3 K/uL (0.0-0.7); EOSINOPHILS % (AUTO) 5.3 % (0.0-7.0); HEMATOCRIT 26.7 % (36.7-47.1); HEMOGLOBIN 8.8 g/dL (12.5-16.3); LYMPHOCYTES # (AUTO) 0.8 K/uL (20.0-40.0); LYMPHOCYTES % (AUTO) 15.5 % (20.5-51.5); MEAN CORPUSCULAR HEMOGLOBIN 30.1 uug (23.8-33.4); MEAN CORPUSCULAR HGB CONC 33 g/dL (32.5-36.3); MEAN CORPUSCULAR VOLUME 90.8 fL (73.0-96.2); MONOCYTES # (AUTO) 0.7 K/uL (2.0-10.0); MONOCYTES % (AUTO) 13.8 % (0.0-11.0); NEUTROPHILS # (AUTO) 3.3 K/uL (1.8-8.9); PLATELET COUNT (AUTO) 209 K/uL (152-348); RED BLOOD CELL COUNT(AUTO) 2.94 MIL/uL (4.06-5.63); WHITE BLOOD COUNT (AUTO) 5.1 K/uL (3.6-10.2)
[2020-11-08 08:18] LABS: CARBON DIOXIDE 28 mmol/L (21-32); CHLORIDE 102 mmol/L (98-107); GLUCOSE 93 mg/dL (74-106); MAGNESIUM 2.1 mg/dL (1.8-2.4); PHOSPHOROUS 4.7 mg/dL (2.5-4.9); POTASSIUM 5.1 mmol/L (3.5-5.1); UREA NITROGEN, BLOOD 55 mg/dL (7-18)
[2020-11-08 08:23] LABS: CREATININE 9.2 mg/dL (0.6-1.3)
[2020-11-08] MEDS: CALCIUM ACETATE 667 MG CAPSULE PO SCH ×2 (09:23→12:39)
[2020-11-08] MEDS: ASPIRIN 81 MG TAB.CHEW PO SCH (09:23)
[2020-11-08] MEDS: FINASTERIDE 5 MG TABLET PO SCH (09:23)
[2020-11-08] MEDS: ZINC SULFATE 220 MG CAPSULE PO SCH (09:23)
[2020-11-08] MEDS: AMIODARONE HCL 200 MG TABLET PO SCH (09:24)
[2020-11-08] MEDS: FOLIC ACID/VITAMIN B COMP W-C TABLET PO SCH (09:24)
[2020-11-08] MEDS: HEPARIN SODIUM,PORCINE 5,000 UNITS/ML VIAL SQ SCH (09:26)
[2020-11-08 11:27] LABS: NEUTROPHILS % (MANUAL) 0 % (42-75)
[2020-11-08 12:00] VITALS: BP 132/65
[2020-11-08] MEDS ORDERED: AMIK250V7 IV (13:09)
[2020-11-08 16:00] VITALS: BP 130/67
--- NOTE | 2020-11-08 16:00 | NUR ---
Prepared for discharge. States would like to stay one more day. Instructed that he has already been discharged.
--- NOTE | 2020-11-08 17:30 | NUR ---
Discharged via [facility] to ambulance attendants.
== END 2020-11-08 17:30 | DRG 871 ==
LOC: ER 18:15 → TELE3 22:44 → MEDSURG3 11-06 11:53
PROVIDERS: ADMIT Nurse Practitioner Acute Care; ATTEND Nurse Practitioner Acute Care
PROC: 5A1D70Z Performance of Urinary Filtration, Intermittent, Less than 6 Hours Per Day (ICD-10-PCS; principal; 2020-11-05)
DX: A41.9 Sepsis, unspecified organism (principal); G92 Toxic encephalopathy; N18.6 End stage renal disease; I21.A1 Myocardial infarction type 2; N39.0 Urinary tract infection, site not specified; Z16.12 Extended spectrum beta lactamase (ESBL) resistance; I13.2 Hypertensive heart and chronic kidney disease with heart failure and with stage 5 chronic kidney disease, or end stage renal disease; Z99.2 Dependence on renal dialysis; E11.22 Type 2 diabetes mellitus with diabetic chronic kidney disease; G31.84 Mild cognitive impairment of uncertain or unknown etiology; F32.9 Major depressive disorder, single episode, unspecified; I25.10 Atherosclerotic heart disease of native coronary artery without angina pectoris; M19.90 Unspecified osteoarthritis, unspecified site; Z79.82 Long term (current) use of aspirin; Z79.4 Long term (current) use of insulin; Z86.19 Personal history of other infectious and parasitic diseases; M81.8 Other osteoporosis without current pathological fracture; R74.01 Elevation of levels of liver transaminase levels; E87.5 Hyperkalemia; R53.1 Weakness; R33.9 Retention of urine, unspecified; B96.20 Unspecified Escherichia coli [E. coli] as the cause of diseases classified elsewhere; I50.9 Heart failure, unspecified; N40.1 Benign prostatic hyperplasia with lower urinary tract symptoms; Z20.828 Contact with and (suspected) exposure to other viral communicable diseases
CPT/HCPCS: 36415; 36600; 70030-TC; 71045; 83605; 83615; 83735; 84100; 85025; 85730; 86140; 86706; 87040; 87086; 87340; 87400; 93005; A4663; A9150; G0378; J0456; J0610; J0696; J1644; J1815; J2185; J3490; J7030; J7060; U0003

== ENCOUNTER 2023-04-12 12:29 | Inpatient (IN) | payer MEDICARE, OTHER ==
[~2023-04-12] VITALS: Ht 180.3 cm; Wt 78.3 kg
[~2023-04-12 12:29] MED LIST changes: +AMIK250V7 IV; +ASPI81TA31 PO; -HUM100IN SQ; -INSU100C4 SQ; -INSU100I43 SQ; -MAGN400O6 PO; -MERO500V21 IV; -PROT946L PO
[2023-04-12 12:53] LABS: HEMATOCRIT 23.9 % (36.7-47.1); MEAN CORPUSCULAR HEMOGLOBIN 30.3 uug (23.8-33.4); MEAN CORPUSCULAR VOLUME 91.2 fL (73.0-96.2); PLATELET COUNT (AUTO) 226 K/uL (152-348)
--- NOTE | 2023-04-12 12:55 | NUR ---
PT ID IN ROOM #1B. DR CHAVEZ EVALUATED THE PT.
[2023-04-12 12:58] LABS: ABG BASE EXCESS 6.8 mmol/L; ABG HCO3 31.6 mmol/L; ABG PCO2 46.6 mmHg (35.0-45.0); ABG PH 7.449 (7.350-7.450); ABG PO2 72.4 mmHg (75.0-100.0); ABG SITE RIGHT RADIAL; ABG TOTAL HEMOGLOBIN 8.4 G/dL (13.5-18.0); COHb 1.3 % (0.5-1.5); MetHb 0.1 % (0.0-1.5); O2Hb 92.4 % (94.0-97.0); VENT MODE Nasal Cannula
[2023-04-12 13:01] LABS: CARBON DIOXIDE 35 mmol/L (21-32); CHLORIDE 97 mmol/L (98-107); GLUCOSE 106 mg/dL (74-106); POTASSIUM 3.9 mmol/L (3.5-5.1); UREA NITROGEN, BLOOD 44 mg/dL (7-18)
[2023-04-12 13:04] LABS: MAGNESIUM 2.1 mg/dL (1.8-2.4); PHOSPHOROUS 4.7 mg/dL (2.5-4.9)
[2023-04-12 13:11] LABS: CREATININE 8.2 mg/dL (0.6-1.3)
[2023-04-12 13:14] LABS: ALANINE AMINOTRANSFERASE 8 U/L (16-63); ALKALINE PHOSPHATASE 53 U/L (50-136); ASPARTATE AMINOTRANSFERASE 7 U/L (15-37); BILIRUBIN,DIRECT 0.2 mg/dL (0.0-0.2); BILIRUBIN,TOTAL 0.7 mg/dL (0.2-1.0); TOTAL PROTEIN, SERUM 6.5 g/dL (6.4-8.2)
[2023-04-12] MEDS ORDERED: ATOR40TA PO (14:28)
[2023-04-12] MEDS ORDERED: AMLO-212 PO (14:28)
[2023-04-12] MEDS ORDERED: METO-356 PO (14:39)
[2023-04-12] MEDS ORDERED: ACET325C7 PO (14:39)
[2023-04-12] MEDS ORDERED: GUAI-1189 PO (14:39)
[2023-04-12] MEDS ORDERED: NITR0.4T48 SL (14:39)
[2023-04-12] MEDS ORDERED: MORPHINE SULFATE 2 MG/1 ML DISP.SYRIN IV PRN (15:45)
[2023-04-12] MEDS ORDERED: MAGNESIUM HYDROXIDE 30 ML LIQUID UDC PO PRN (15:45)
[2023-04-12] MEDS ORDERED: ACETAMINOPHEN 325 MG TABLET PO PRN (15:45)
[2023-04-12] MEDS ORDERED: HYDROCODONE/APAP 5-325MG TABLET PO PRN (15:45)
[2023-04-12] MEDS ORDERED: ONDANSETRON 4 MG/2 ML VIAL IV PRN (15:45)
--- NOTE | 2023-04-12 15:55 | NUR ---
REPORT WAS GIVEN TO FRONT DESK CLERK. PT WAS TRANSFERED TO ROOM #309.
[2023-04-12] MEDS ORDERED: NITROGLYCERIN 0.4 MG/TAB BOTTLE SL PRN (16:15)
--- NOTE | 2023-04-12 16:30 | NUR ---
Received admission from ER via stretcher 72y/o male with Dx. acute hypoxic respiratory failure. Alert, oriented x 3, with O2 inhalation at 4lpm via nasal cannula saturating at 93%. IV site at right AC g.18 intact and patent, dialysis site at left forearm. Routine admission care done. Safety measures initiated, call light within reached. Plan of care initiated. Needs attended 1645 - 2D Echo done
[2023-04-12 17:01] VITALS: BP 118/58
[2023-04-12] MEDS ORDERED: ATORVASTATIN 40 MG TABLET PO SCH (18:00)
--- NOTE | 2023-04-12 19:00 | NUR ---
Signed consent for hemodialysis stat today.
--- NOTE | 2023-04-12 19:45 | NUR ---
Report received from day shift. Pt arrived at 1600 today. Pt is awake, calm. denies distress, waiting for dialysis.
[2023-04-12 20:40] VITALS: BP 100/54
[2023-04-12] MEDS ORDERED: ALBUMIN HUMAN 25% 100 ML IV PRN (21:15)
[2023-04-13] VITALS: BP 125/55
[2023-04-13] MEDS: GABAPENTIN 100 MG CAPSULE PO SCH ×3 (00:19→20:13)
[2023-04-13 06:24] VITALS: BP 103/42
[2023-04-13] MEDS: PANTOPRAZOLE SODIUM 40 MG TABLET.DR PO SCH (06:25)
[2023-04-13 06:57] LABS: HEMATOCRIT 23.4 % (36.7-47.1); MEAN CORPUSCULAR HEMOGLOBIN 30.2 uug (23.8-33.4); MEAN CORPUSCULAR VOLUME 91.9 fL (73.0-96.2); PLATELET COUNT (AUTO) 223 K/uL (152-348)
[2023-04-13 07:19] LABS: CARBON DIOXIDE 37 mmol/L (21-32); CHLORIDE 100 mmol/L (98-107); CHOLESTEROL 103 mg/dL (<200); GLUCOSE 80 mg/dL (74-106); HDL CHOLESTEROL 41 mg/dL (40-60); PHOSPHOROUS 4.5 mg/dL (2.5-4.9); POTASSIUM 4.1 mmol/L (3.5-5.1); TRIGLYCERIDES 51 MG/DL (30-150); UREA NITROGEN, BLOOD 31 mg/dL (7-18)
[2023-04-13 07:48] VITALS: BP 103/42
[2023-04-13 08:00] VITALS: BP 103/63
[2023-04-13] MEDS: AMIODARONE HCL 200 MG TABLET PO SCH (08:38)
[2023-04-13] MEDS: AMLODIPINE 5 MG TABLET PO SCH (08:39)
[2023-04-13] MEDS: FINASTERIDE 5 MG TABLET PO SCH (08:39)
[2023-04-13] MEDS: METOPROLOL SUCCINATE XL 25 MG TAB.SR.24H PO SCH (08:39)
[2023-04-13] MEDS: ASPIRIN 81 MG TAB.CHEW PO SCH (15:10)
--- NOTE | 2023-04-13 18:10 | NUR ---
Patient had a quiet day no c/o SOB. O2 via nasal cannula at 2L/min saturating 96%. Left arm fistula + for bruit and thrill no bleeding noted to the site. Requires assist x1 with ADL's all needs attended no change in condition.
--- NOTE | 2023-04-13 19:10 | NUR ---
Report received from day shift. Pt is awake, calm. denies distress, call light with in reach
[2023-04-13 20:00] VITALS: BP 142/70
[2023-04-13] MEDS: ATORVASTATIN 40 MG TABLET PO SCH (20:13)
--- NOTE | 2023-04-14 01:00 | NUR ---
pt sleeping at this tome call light with in reach
[2023-04-14 04:00] VITALS: BP 138/65
[2023-04-14] MEDS: PANTOPRAZOLE SODIUM 40 MG TABLET.DR PO SCH (06:07)
[2023-04-14 06:31] LABS: CARBON DIOXIDE 34 mmol/L (21-32); CHLORIDE 98 mmol/L (98-107); GLUCOSE 92 mg/dL (74-106); POTASSIUM 4.1 mmol/L (3.5-5.1); UREA NITROGEN, BLOOD 50 mg/dL (7-18)
[2023-04-14 06:46] LABS: CREATININE 7.8 mg/dL (0.6-1.3)
[2023-04-14 08:06] LABS: HEPATITIS B SURFACE AG Negative (Negative)
[2023-04-14] MEDS: GABAPENTIN 100 MG CAPSULE PO SCH ×2 (09:05→20:59)
[2023-04-14] MEDS: ASPIRIN 81 MG TAB.CHEW PO SCH (09:05)
[2023-04-14] MEDS: AMLODIPINE 5 MG TABLET PO SCH (09:05)
[2023-04-14] MEDS: AMIODARONE HCL 200 MG TABLET PO SCH (09:06)
[2023-04-14] MEDS: METOPROLOL SUCCINATE XL 25 MG TAB.SR.24H PO SCH (09:06)
[2023-04-14] MEDS: FINASTERIDE 5 MG TABLET PO SCH (09:06)
[2023-04-14 11:35] VITALS: BP 100/56
[2023-04-14 16:12] VITALS: BP 133/70
[2023-04-14 20:12] VITALS: BP 150/78
[2023-04-14] MEDS: ATORVASTATIN 40 MG TABLET PO SCH (20:58)
[2023-04-15 04:35] VITALS: BP 155/69
[2023-04-15] MEDS: PANTOPRAZOLE SODIUM 40 MG TABLET.DR PO SCH (06:16)
--- NOTE | 2023-04-15 06:41 | NUR ---
tolerated hemodialysis last night fluid removal of 2 liters . uneventful night sleep most of the shift.tolerating 02 nasal cannula at 3 liters/min .
[2023-04-15] MEDS: ASPIRIN 81 MG TAB.CHEW PO SCH (09:09)
[2023-04-15] MEDS: FINASTERIDE 5 MG TABLET PO SCH (09:09)
[2023-04-15] MEDS: GABAPENTIN 100 MG CAPSULE PO SCH ×2 (09:09→22:11)
[2023-04-15] MEDS: AMIODARONE HCL 200 MG TABLET PO SCH (09:10)
[2023-04-15] MEDS: AMLODIPINE 5 MG TABLET PO SCH (09:11)
[2023-04-15] MEDS: METOPROLOL SUCCINATE XL 25 MG TAB.SR.24H PO SCH (09:11)
[2023-04-15 10:46] LABS: CARBON DIOXIDE 34 mmol/L (21-32); CHLORIDE 99 mmol/L (98-107); CREATININE 7.1 mg/dL (0.6-1.3); GLUCOSE 120 mg/dL (74-106); POTASSIUM 4.2 mmol/L (3.5-5.1); UREA NITROGEN, BLOOD 44 mg/dL (7-18)
[2023-04-15 11:39] VITALS: BP 148/67
--- NOTE | 2023-04-15 13:00 | NUR ---
DIALYSIS NURSE HERE SHERI NOTIFIED HIM THAT DR SALGUERO HAD SUGGESTED THAT PATIENT SHOULD HAVE DIALYSIS TODAY I ATTEMPTED TO REACH DR JACKSON BUT HE DID NOT AIRPORT TRAFFIC CONTROLLER.
--- NOTE | 2023-04-15 15:49 | NUR ---
DR ADAMES HERE NOTIFIED HIM THAT I TRIED TO CALL DR JACKSON WHEN THE LAB ENGINEER WAS HERE TO SEE IF HE WANTS PATIENT TO HAVE DIALYSIS TODAY SUGGESTED BY DR SALGUERO AND STATED OKAY WILL CHECK TO SEE IF HE WILL ORDER ONE FOR TODAY.
[2023-04-15 16:00] VITALS: BP 149/71
--- NOTE | 2023-04-15 18:15 | NUR ---
OIM CONSULTANT HERE AND STARTED DIALYSIS ORDERED.ENDORSED.
[2023-04-15 20:30] VITALS: BP 134/66
[2023-04-15] MEDS: ATORVASTATIN 40 MG TABLET PO SCH (22:11)
[2023-04-16 00:37] VITALS: BP 152/101
[2023-04-16] MEDS: TEMAZEPAM 15 MG CAPSULE PO PRN ×2 (00:37→22:30)
[2023-04-16 04:11] VITALS: BP 132/56
[2023-04-16 06:23] LABS: CARBON DIOXIDE 34 mmol/L (21-32); CHLORIDE 99 mmol/L (98-107); CREATININE 6.1 mg/dL (0.6-1.3); GLUCOSE 89 mg/dL (74-106); POTASSIUM 4.2 mmol/L (3.5-5.1); UREA NITROGEN, BLOOD 41 mg/dL (7-18)
[2023-04-16] MEDS: PANTOPRAZOLE SODIUM 40 MG TABLET.DR PO SCH (06:23)
--- NOTE | 2023-04-16 07:39 | NUR ---
RECEIVED PATIENT IN BED AWAKE ALERT AND ORIENTED.ON O2 AT 3L/M BY NASAL CANULA WITH NO SHORTNESS OF BREATH NOTED AT THIS TIME.DENIES PAIN OR DISCOMFORTS TELE IS AFIB CONTROLLED DIALYSIS ON 04/15 WITH 2.5 LITERS REMOVED AV SHUNT REMAINS INTACT TO HIS LEFT UPPER ARM CALL LIGHTS AND PERSONAL BELONGINGS ARE WITHIN EASY REACH AT THIS TIME.WILL CONTINUE TO OBSERVE.
--- NOTE | 2023-04-16 08:27 | NUR ---
DR SALGUERO HERE SEEN PATIENT WITH NEW ORDER AND NOTED.
[2023-04-16] MEDS: METOPROLOL SUCCINATE XL 25 MG TAB.SR.24H PO SCH (08:34)
[2023-04-16] MEDS: ASPIRIN 81 MG TAB.CHEW PO SCH (08:34)
[2023-04-16] MEDS: AMIODARONE HCL 200 MG TABLET PO SCH (08:34)
[2023-04-16] MEDS: FINASTERIDE 5 MG TABLET PO SCH (08:34)
[2023-04-16] MEDS: GABAPENTIN 100 MG CAPSULE PO SCH ×2 (08:34→22:27)
[2023-04-16] MEDS: AMLODIPINE 5 MG TABLET PO SCH (08:35)
[2023-04-16] MEDS: FUROSEMIDE 40 MG/4 ML VIAL IV SCH ×2 (10:34→22:26)
--- NOTE | 2023-04-16 11:00 | NUR ---
INSERTED GAUGE 22 TO PATIENT RIGHT FOREARM AND HE CONTINUES ON DIURETICS ORDERED.
[2023-04-16 12:05] VITALS: BP 117/60
[2023-04-16 16:01] VITALS: BP 124/61
[2023-04-16] MEDS: ATORVASTATIN 40 MG TABLET PO SCH (22:27)
[2023-04-17 02:28] VITALS: BP 130/64
[2023-04-17] MEDS: PANTOPRAZOLE SODIUM 40 MG TABLET.DR PO SCH (06:25)
--- NOTE | 2023-04-17 07:30 | NUR ---
PATIENT IS IN BED ASLEEP EASILY AROUSABLE ON ROUNDS ALERT AND ORIENTED DENIES DISCOMFORTS ON O2 AT 3L/M BY NASAL CANULA WITH NO SHORTNESS OF BREATH AT THIS TIME CALL LIGHTS AND PERSONAL BELONGINGS ARE WITHIN EASY REACH WILL CONTINUE TO OBSERVE.
--- NOTE | 2023-04-17 08:48 | NUR ---
PATIENT SEEN AND EXAMINED BY DR JACKSON AND MARGIE MACK WITH NEW ORDERS AND NOTED.
[2023-04-17 09:08] LABS: HEMATOCRIT 25.9 % (36.7-47.1); MEAN CORPUSCULAR HEMOGLOBIN 32.2 uug (23.8-33.4); MEAN CORPUSCULAR VOLUME 91.7 fL (73.0-96.2); PLATELET COUNT (AUTO) 308 K/uL (152-348)
[2023-04-17] MEDS: FUROSEMIDE 40 MG/4 ML VIAL IV SCH ×2 (09:19→20:17)
[2023-04-17] MEDS: ASPIRIN 81 MG TAB.CHEW PO SCH (09:19)
[2023-04-17] MEDS: FINASTERIDE 5 MG TABLET PO SCH (09:19)
[2023-04-17] MEDS: AMIODARONE HCL 200 MG TABLET PO SCH (09:20)
[2023-04-17] MEDS: METOPROLOL SUCCINATE XL 25 MG TAB.SR.24H PO SCH (09:20)
[2023-04-17] MEDS: GABAPENTIN 100 MG CAPSULE PO SCH ×2 (09:20→20:17)
[2023-04-17] MEDS: AMLODIPINE 5 MG TABLET PO SCH (09:21)
[2023-04-17 11:29] VITALS: BP 120/49
[2023-04-17 16:00] VITALS: BP 114/54
--- NOTE | 2023-04-17 16:15 | NUR ---
PATIENT IS FOR DIALYSIS TODAY AWAITING FOR THE BAGGAGE INSPECTOR TO ARRIVE FOR DIALYSIS ORDERED.
[2023-04-17 20:00] VITALS: BP 115/58
[2023-04-17] MEDS: ATORVASTATIN 40 MG TABLET PO SCH (20:17)
--- NOTE | 2023-04-17 20:17 | NUR ---
due po medication given patient tolerated pills with water . voids using the urinal . advised to call for help and to used the call light.
--- NOTE | 2023-04-17 20:20 | NUR ---
oil winterizer at b/s starting HD .
[2023-04-17 23:20] VITALS: BP 114/60
--- NOTE | 2023-04-17 23:20 | NUR ---
PER STEREO COMPILER HD TX COMPLETED FLUID REMOVAL OF 4000 ML .PATIENT TOLERATED HD.
--- NOTE | 2023-04-18 00:10 | NUR ---
patient requested for snacks given saltine crackers ,hot tea ,chocolate pudding and vanilla ice cream .patient able to feed self .
[2023-04-18] MEDS: TEMAZEPAM 15 MG CAPSULE PO PRN (01:18)
--- NOTE | 2023-04-18 01:21 | NUR ---
patient called c/o request for sleeping medication given prn Restoril .
[2023-04-18 04:00] VITALS: BP 125/54
[2023-04-18] MEDS: PANTOPRAZOLE SODIUM 40 MG TABLET.DR PO SCH (06:08)
--- NOTE | 2023-04-18 06:51 | NUR ---
uneventful night slept most of the night no complains made needs attended .
--- NOTE | 2023-04-18 08:30 | NUR ---
DR JACKSON HERE AND SEEN PATIENT WITH ORDER FOR HEMODIALYSIS TODAY.
[2023-04-18] MEDS: GABAPENTIN 100 MG CAPSULE PO SCH ×3 (08:55→20:53)
[2023-04-18] MEDS: FINASTERIDE 5 MG TABLET PO SCH (08:55)
[2023-04-18] MEDS: ASPIRIN 81 MG TAB.CHEW PO SCH (08:55)
[2023-04-18] MEDS: AMLODIPINE 5 MG TABLET PO SCH (08:55)
[2023-04-18] MEDS: FUROSEMIDE 40 MG TABLET PO SCH ×2 (08:55→16:55)
[2023-04-18] MEDS: AMIODARONE HCL 200 MG TABLET PO SCH (08:55)
[2023-04-18] MEDS: METOPROLOL SUCCINATE XL 25 MG TAB.SR.24H PO SCH (08:56)
--- NOTE | 2023-04-18 09:30 | NUR ---
SEEN BY DR SALGUERO WITH NEW ORDERS RESTING STATED HE SLEPT BETTER LAST NOC WITH THE SEDATIVE THAT HE GOT.REMAIN ON O2 AT 3L/M WITH NO SOB AT THIS TIME CALL LIGHTS AND PERSONAL BELONGINGS ARE WITHIN EASY REACH WILL CONTINUE TO OBSERVE.
[2023-04-18 11:33] VITALS: BP 106/30
--- NOTE | 2023-04-18 13:00 | NUR ---
PATIENT HAS AN ORDER FOR URINALYSIS PATIENT IS A DIALYSIS PATIENT STILL MAKES URINE BUT NOT FREQUENT HE IS AWARE THAT WE NEED URINE SPECIMEN AND CLEAN URINAL PROVIDED WILL OBSERVE AND COLLECT URINE SOON ABLE.
[2023-04-18 16:00] VITALS: BP 121/82
--- NOTE | 2023-04-18 17:53 | NUR ---
DATA TECHNICAL LEAD HERE AND STARTED DIALYSIS AT THIS TIME PATIENT STILL HAS NOT VOIDED SINCE I NOTIFIED HIM OF THE NEED FOR URINE SPECIMEN.
[2023-04-18] MEDS: ATORVASTATIN 40 MG TABLET PO SCH ×2 (20:12→20:53)
[2023-04-18 20:20] VITALS: BP 114/60
--- NOTE | 2023-04-18 20:30 | NUR ---
Hemodialysis tx completed fluid removal of 2000 ML. Patient tolerated HD tx.
[2023-04-18 21:29] LABS: *BILIRUBIN,URIN NEGATIVE (NEGATIVE); *BLOOD, URINE NEGATIVE (NEGATIVE); *CLARITY,URINE CLEAR (CLEAR); *COLOR,URINE YELLOW (YELLOW); *KETONES,URINE NEGATIVE (NEGATIVE); *UROBILINOGEN,URINE 0.2 E.U./dl (NORMAL); LEUKOCYTE ESTERASE ,URINE NEGATIVE (NEGATIVE); NITRITE, URINE NEGATIVE (NEGATIVE); PH,URINE 8.5 (5.0-8.0); UGLUCOSE TRACE (NEGATIVE)
[2023-04-18 21:35] LABS: RBC,URINE 0-3 /HPF (0-3); WBC,URINE 0-3 /HPF (0-3)
[2023-04-19 00:30] VITALS: BP 125/52
[2023-04-19 04:30] VITALS: BP 135/57
[2023-04-19] MEDS: PANTOPRAZOLE SODIUM 40 MG TABLET.DR PO SCH (06:15)
[2023-04-19 06:52] LABS: HEMATOCRIT 25.9 % (36.7-47.1); MEAN CORPUSCULAR HEMOGLOBIN 29.9 uug (23.8-33.4); MEAN CORPUSCULAR VOLUME 91.6 fL (73.0-96.2); PLATELET COUNT (AUTO) 286 K/uL (152-348)
[2023-04-19 07:19] LABS: CHLORIDE 98 mmol/L (98-107); CREATININE 5.6 mg/dL (0.6-1.3); GLUCOSE 97 mg/dL (74-106); PHOSPHOROUS 4.8 mg/dL (2.5-4.9); POTASSIUM 4.5 mmol/L (3.5-5.1); UREA NITROGEN, BLOOD 39 mg/dL (7-18)
--- NOTE | 2023-04-19 07:25 | NUR ---
AWAKE ALERT AND ORIENTED X3 DENIES PAIN OR SOB SR ON MONITOR. AWAITING HD FOR TODAY
[2023-04-19 08:49] LABS: CARBON DIOXIDE 32 mmol/L (21-32)
[2023-04-19] MEDS: FINASTERIDE 5 MG TABLET PO SCH (08:55)
[2023-04-19] MEDS: GABAPENTIN 100 MG CAPSULE PO SCH ×2 (08:55→20:50)
[2023-04-19] MEDS: FUROSEMIDE 40 MG TABLET PO SCH ×2 (08:55→17:13)
[2023-04-19] MEDS: ASPIRIN 81 MG TAB.CHEW PO SCH (08:55)
[2023-04-19] MEDS: AMLODIPINE 5 MG TABLET PO SCH (08:55)
[2023-04-19] MEDS: METOPROLOL SUCCINATE XL 25 MG TAB.SR.24H PO SCH (08:55)
[2023-04-19] MEDS: AMIODARONE HCL 200 MG TABLET PO SCH (08:56)
--- NOTE | 2023-04-19 10:30 | NUR ---
HEMODIALYSIS STARTED AT BEDSIDE BY HD STAFF, CLOSELY MONITORED
[2023-04-19 11:42] VITALS: BP 128/65
--- NOTE | 2023-04-19 13:46 | NUR ---
hemodialiysis completed tolerated well
[2023-04-19 15:42] VITALS: BP 137/64
[2023-04-19 20:00] VITALS: BP 142/58
[2023-04-19] MEDS: ATORVASTATIN 40 MG TABLET PO SCH (20:50)
[2023-04-20] VITALS: BP 124/78
[2023-04-20] MEDS: TEMAZEPAM 15 MG CAPSULE PO PRN (00:34)
[2023-04-20] MEDS: PANTOPRAZOLE SODIUM 40 MG TABLET.DR PO SCH (06:45)
[2023-04-20 07:00] LABS: HEMATOCRIT 25.4 % (36.7-47.1); MEAN CORPUSCULAR HEMOGLOBIN 30.8 uug (23.8-33.4); MEAN CORPUSCULAR VOLUME 92.9 fL (73.0-96.2); PLATELET COUNT (AUTO) 293 K/uL (152-348)
[2023-04-20 07:21] LABS: CARBON DIOXIDE 28 mmol/L (21-32); CHLORIDE 103 mmol/L (98-107); CREATININE 5.2 mg/dL (0.6-1.3); GLUCOSE 92 mg/dL (74-106); MAGNESIUM 2.1 mg/dL (1.8-2.4); PHOSPHOROUS 4.3 mg/dL (2.5-4.9); POTASSIUM 5.1 mmol/L (3.5-5.1); UREA NITROGEN, BLOOD 33 mg/dL (7-18)
--- NOTE | 2023-04-20 07:24 | NUR ---
REPORT GIVEN TO DIVINE BYRD
--- NOTE | 2023-04-20 08:00 | NUR ---
AWAKE ALERT AND ORIENTED X4 DENIES PAIN OR NO SS OF SOB RA SATS 98%. PER HOSPITALIST PLAN DC TODAY. SR ON MONITOR
[2023-04-20] MEDS: FINASTERIDE 5 MG TABLET PO SCH (08:56)
[2023-04-20] MEDS: GABAPENTIN 100 MG CAPSULE PO SCH (08:56)
[2023-04-20] MEDS: AMIODARONE HCL 200 MG TABLET PO SCH (08:56)
[2023-04-20] MEDS: AMLODIPINE 5 MG TABLET PO SCH (08:56)
[2023-04-20] MEDS: ASPIRIN 81 MG TAB.CHEW PO SCH (08:57)
[2023-04-20] MEDS: METOPROLOL SUCCINATE XL 25 MG TAB.SR.24H PO SCH (08:57)
[2023-04-20] MEDS: FUROSEMIDE 40 MG TABLET PO SCH (09:00)
--- NOTE | 2023-04-20 11:00 | NUR ---
SEEN BY PHYSICAL THERAPIST FOR THER EX WITH [facility], SEE NOTES
[2023-04-20] MEDS ORDERED: FURO-151 PO (11:56)
[2023-04-20 12:05] VITALS: BP 127/57
[2023-04-20 15:34] VITALS: BP 141/61
--- NOTE | 2023-04-20 16:38 | NUR ---
DISCHARGED TO [facility] VIA AMBULANCE. REPORT GIVEN TO STAFF AND AMBULANCE
== END 2023-04-20 16:35 | DRG 291 ==
LOC: ER 12:29 → TELE3 15:48 → MEDSURG3 04-20 08:26
PROVIDERS: ADMIT Nurse Practitioner Acute Care; ATTEND Nurse Practitioner Acute Care
PROC: 5A1D70Z Performance of Urinary Filtration, Intermittent, Less than 6 Hours Per Day (ICD-10-PCS; principal; 2023-04-12)
DX: I13.2 Hypertensive heart and chronic kidney disease with heart failure and with stage 5 chronic kidney disease, or end stage renal disease (principal); I50.23 Acute on chronic systolic (congestive) heart failure; J96.01 Acute respiratory failure with hypoxia; N18.6 End stage renal disease; Z86.16 Personal history of COVID-19; Z20.822 Contact with and (suspected) exposure to COVID-19; Z99.2 Dependence on renal dialysis; Z87.440 Personal history of urinary (tract) infections; N40.0 Benign prostatic hyperplasia without lower urinary tract symptoms; R94.6 Abnormal results of thyroid function studies; I48.0 Paroxysmal atrial fibrillation; I25.5 Ischemic cardiomyopathy; E11.42 Type 2 diabetes mellitus with diabetic polyneuropathy; E11.22 Type 2 diabetes mellitus with diabetic chronic kidney disease; D63.8 Anemia in other chronic diseases classified elsewhere; N25.0 Renal osteodystrophy; M19.90 Unspecified osteoarthritis, unspecified site; Z87.19 Personal history of other diseases of the digestive system; G31.84 Mild cognitive impairment of uncertain or unknown etiology; Z79.82 Long term (current) use of aspirin; I07.1 Rheumatic tricuspid insufficiency; E78.5 Hyperlipidemia, unspecified; I25.10 Atherosclerotic heart disease of native coronary artery without angina pectoris
CPT/HCPCS: 36415; 36600; 71045; 83735; 84100; 84443; 84484; 85025; 85730; 86706; 86850; 86900; 86901; 87340; 90937; 93005; 93307; A4663; G0378; J1940; J7040; P9047

== ENCOUNTER 2023-10-26 15:31 | Inpatient (IN) | payer MEDICARE, OTHER ==
[~2023-10-26] VITALS: Ht 182.9 cm; Wt 77.1 kg
[~2023-10-26 15:31] MED LIST changes: -ALBU2.5V13 IH; -AMIK250V7 IV; +AMLO-212 PO; -ASPI81TA31 PO; +ATOR40TA PO; -CALC-494 PO; -CALC667T6 PO; -DOCU100C36 PO; -EPOE1VIA6 IJ; +FURO-151 PO; +GUAI-1189 PO; +METO-356 PO; -NALO0.4V2 IJ; -NITR0.4T SL; +NITR0.4T48 SL; -TAMS-3 PO; -VIT1TABL46 PO; -ZINC1CAP2 PO
[2023-10-26] MEDS ORDERED: CEFTRIAXONE 1 G in IV DEXTROSE 5% 50 ML IV ONE (16:00)
[2023-10-26] MEDS ORDERED: VANCOMYCIN IV 1,000 MG in IV DEXTROSE 5% 250 ML IV ONE (16:00)
[2023-10-26] MEDS ORDERED: VANCOMYCIN IV 200 ML ONE (16:06)
[2023-10-26] MEDS ORDERED: CEFTRIAXONE /D5W 50ML IVPB **ER PYXIS IV ONE (16:06)
[2023-10-26] MEDS ORDERED: METO25TA6 PO (16:16)
[2023-10-26] MEDS ORDERED: PANT40TA2 PO (16:16)
[2023-10-26] MEDS ORDERED: DOCU100C36 PO (16:16)
[2023-10-26] MEDS ORDERED: FOLI0.8T43 PO (16:16)
[2023-10-26] MEDS ORDERED: CALC667T2 PO (16:16)
[2023-10-26] MEDS ORDERED: POLY17PO4 PO (16:16)
[2023-10-26 16:35] LABS: BASOPHILS % (AUTO) 0.8 % (0.0-2.0); DIFFERENTIAL COMMENT 0; EOSINOPHILS # (AUTO) 0.1 K/uL (0.0-0.7); EOSINOPHILS % (AUTO) 2.1 % (0.0-7.0); HEMATOCRIT 23.6 % (36.7-47.1); HEMOGLOBIN 7.7 g/dL (12.5-16.3); LYMPHOCYTES % (AUTO) 17.1 % (20.5-51.5); MEAN CORPUSCULAR HEMOGLOBIN 28.2 uug (23.8-33.4); MEAN CORPUSCULAR HGB CONC 33 g/dL (32.5-36.3); MEAN CORPUSCULAR VOLUME 86.4 fL (73.0-96.2); MONOCYTES # (AUTO) 0.9 K/uL (0.1-1.30); MONOCYTES % (AUTO) 15.8 % (0.0-11.0); NEUTROPHILS # (AUTO) 3.7 K/uL (1.8-8.9); NEUTROPHILS % (AUTO) 64.2 % (38.5-71.5); PLATELET COUNT (AUTO) 276 K/uL (152-348); RED BLOOD CELL COUNT(AUTO) 2.73 MIL/uL (4.06-5.63); RED CELL DISTRIBUTION WIDTH 19.2 % (12.1-16.2); WHITE BLOOD COUNT (AUTO) 5.8 K/uL (3.6-10.2)
[2023-10-26 16:47] LABS: *BILIRUBIN,URIN NEGATIVE (NEGATIVE); *BLOOD, URINE 2+ (NEGATIVE); *CLARITY,URINE CLOUDY (CLEAR); *COLOR,URINE YELLOW (YELLOW); *KETONES,URINE NEGATIVE (NEGATIVE); *UROBILINOGEN,URINE 0.2 E.U./dl (NORMAL); LEUKOCYTE ESTERASE ,URINE 3+ (NEGATIVE); NITRITE, URINE NEGATIVE (NEGATIVE); PH,URINE 8.5 (5.0-8.0); UGLUCOSE NEGATIVE (NEGATIVE)
[2023-10-26 16:52] LABS: *PROTEIN,URINE 3+ (NEGATIVE)
[2023-10-26 16:55] LABS: CALCIUM 9.1 mg/dL (8.5-10.1); CARBON DIOXIDE 36 mmol/L (21-32); CHLORIDE 96 mmol/L (98-107); CREATININE 5.2 mg/dL (0.6-1.3); GLUCOSE 172 mg/dL (74-106); POTASSIUM 4.1 mmol/L (3.5-5.1); SODIUM SERUM 134 mmol/L (136-145); UREA NITROGEN, BLOOD 33 mg/dL (7-18)
[2023-10-26 17:08] LABS: ALANINE AMINOTRANSFERASE 15 U/L (16-63); ALBUMIN 2.2 g/dL (3.4-5.0); ALKALINE PHOSPHATASE 42 U/L (50-136); ASPARTATE AMINOTRANSFERASE 10 U/L (15-37); BILIRUBIN,DIRECT 0.1 mg/dL (0.0-0.2); BILIRUBIN,TOTAL 0.3 mg/dL (0.2-1.0); TOTAL PROTEIN, SERUM 6.5 g/dL (6.4-8.2)
[2023-10-26 17:32] LABS: LACTIC ACID 2.4 mmol/L (0.4-2.0)
[2023-10-26 18:16] LABS: WBC,URINE TNTC /HPF (0-3)
[2023-10-26 18:23] LABS: BACTERIA,URINE MODERATE /HPF (NONE SEEN); SQUAMOUS EPITHELIAL CELL,UR MODERATE /HPF (NONE SEEN)
[2023-10-26 19:21] LABS: ANISOCYTOSIS 2+; LYMPHOCYTES % (MANUAL) 23 % (20-40); MONOCYTES % (MANUAL) 14 % (2-10); NEUTROPHILS % (MANUAL) 63 % (42-75); PLATELET ESTIMATE ADEQUATE
[2023-10-26] MEDS ORDERED: REMEDY ESSENTIAL ZINC PASTE 113 GM TP PRN (19:45)
[2023-10-26] MEDS ORDERED: ONDANSETRON 4 MG/2 ML VIAL IV PRN (19:45)
[2023-10-26 22:20] VITALS: BP 147/65; TEMP 100.1; O2SAT 93
[2023-10-26] MEDS: ACETAMINOPHEN 325 MG TABLET PO PRN (22:43)
[2023-10-26 23:54] VITALS: TEMP 99
[2023-10-27 00:51] VITALS: BP 124/58; TEMP 99.1; O2SAT 93
[2023-10-27 05:06] VITALS: BP 125/59; TEMP 98.7; O2SAT 93
[2023-10-27 07:25] LABS: BASOPHILS % (AUTO) 0.8 % (0.0-2.0); EOSINOPHILS # (AUTO) 0.2 K/uL (0.0-0.7); EOSINOPHILS % (AUTO) 3.2 % (0.0-7.0); HEMATOCRIT 27.1 % (36.7-47.1); HEMOGLOBIN 8.8 g/dL (12.5-16.3); LYMPHOCYTES % (AUTO) 16.1 % (20.5-51.5); MEAN CORPUSCULAR HEMOGLOBIN 27.6 uug (23.8-33.4); MEAN CORPUSCULAR HGB CONC 33 g/dL (32.5-36.3); MEAN CORPUSCULAR VOLUME 84.9 fL (73.0-96.2); MONOCYTES # (AUTO) 0.5 K/uL (0.1-1.30); MONOCYTES % (AUTO) 8.1 % (0.0-11.0); NEUTROPHILS # (AUTO) 4.3 K/uL (1.8-8.9); NEUTROPHILS % (AUTO) 71.8 % (38.5-71.5); PLATELET COUNT (AUTO) 303 K/uL (152-348); RED BLOOD CELL COUNT(AUTO) 3.19 MIL/uL (4.06-5.63); RED CELL DISTRIBUTION WIDTH 19.9 % (12.1-16.2)
[2023-10-27 07:37] LABS: DIFFERENTIAL COMMENT 1
[2023-10-27 07:53] LABS: ALANINE AMINOTRANSFERASE 12 U/L (16-63); ALBUMIN 2.2 g/dL (3.4-5.0); ALKALINE PHOSPHATASE 40 U/L (50-136); ASPARTATE AMINOTRANSFERASE 12 U/L (15-37); BILIRUBIN,TOTAL 0.4 mg/dL (0.2-1.0); CALCIUM 9.3 mg/dL (8.5-10.1); CARBON DIOXIDE 33 mmol/L (21-32); CHLORIDE 94 mmol/L (98-107); CREATININE 6.2 mg/dL (0.6-1.3); GLUCOSE 171 mg/dL (74-106); PHOSPHOROUS 1.9 mg/dL (2.5-4.9); POTASSIUM 3.9 mmol/L (3.5-5.1); SODIUM SERUM 135 mmol/L (136-145); TOTAL PROTEIN, SERUM 6.7 g/dL (6.4-8.2); UREA NITROGEN, BLOOD 40 mg/dL (7-18)
[2023-10-27 08:00] VITALS: BP 137/60; TEMP 98.4; O2SAT 98
[2023-10-27] MEDS ORDERED: NITROGLYCERIN 0.4 MG/TAB BOTTLE SL PRN (08:45)
[2023-10-27] MEDS: ACETAMINOPHEN 325 MG TABLET PO PRN ×2 (08:45→23:46)
[2023-10-27] MEDS ORDERED: CALCIUM ACETATE PO SCH (08:45)
[2023-10-27] MEDS: DOCUSATE SODIUM 100 MG CAPSULE PO SCH ×2 (09:12→20:11)
[2023-10-27] MEDS: METOPROLOL TARTRATE 25 MG TABLET PO SCH ×2 (09:13→20:12)
[2023-10-27] MEDS: PANTOPRAZOLE SODIUM 40 MG TABLET.DR PO SCH (09:13)
[2023-10-27] MEDS: GABAPENTIN 100 MG CAPSULE PO SCH ×2 (09:13→20:11)
[2023-10-27] MEDS: AMLODIPINE 5 MG TABLET PO SCH (09:13)
[2023-10-27] MEDS: FINASTERIDE 5 MG TABLET PO SCH (09:14)
[2023-10-27] MEDS: MIRALAX 17 GM POWD.PACK PO SCH (09:14)
[2023-10-27] MEDS ORDERED: VANCOMYCIN IV 500 MG in IV DEXTROSE 5% 100 ML IV PRN (10:00)
[2023-10-27 11:30] VITALS: BP 118/55; TEMP 98.9; O2SAT 96
[2023-10-27] MEDS ORDERED: CALCIUM ACETATE 667 MG CAP/TAB PO SCH (12:00)
[2023-10-27] MEDS: AMIODARONE HCL 200 MG TABLET PO SCH (14:32)
[2023-10-27] MEDS: CEFTRIAXONE 1 G in IV DEXTROSE 5% 50 ML IV SCH (16:05)
[2023-10-27 16:35] VITALS: BP 127/76; TEMP 98.8; O2SAT 95
[2023-10-27] MEDS: FUROSEMIDE 40 MG TABLET PO SCH (17:19)
[2023-10-27 20:00] VITALS: BP 145/70; TEMP 98.7; O2SAT 90; O2SAT 93
[2023-10-27] MEDS ORDERED: VANCOMYCIN IV 750 MG in IV DEXTROSE 5% 250 ML IV ONE (23:00)
[2023-10-28] VITALS: BP 148/73; TEMP 99.6; O2SAT 94
[2023-10-28 04:00] VITALS: BP 129/60; TEMP 98; O2SAT 93
[2023-10-28 06:54] LABS: CARBON DIOXIDE 26 mmol/L (21-32); CHLORIDE 96 mmol/L (98-107); POTASSIUM 3.5 mmol/L (3.5-5.1); SODIUM SERUM 134 mmol/L (136-145)
[2023-10-28 06:55] LABS: CALCIUM 8.9 mg/dL (8.5-10.1); CREATININE 4.3 mg/dL (0.6-1.3); GLUCOSE 93 mg/dL (74-106); PHOSPHOROUS 1.5 mg/dL (2.5-4.9); UREA NITROGEN, BLOOD 28 mg/dL (7-18)
[2023-10-28] MEDS: AMLODIPINE 5 MG TABLET PO SCH (08:44)
[2023-10-28] MEDS: ASPIRIN 81 MG TAB.CHEW PO SCH (08:45)
[2023-10-28] MEDS: FINASTERIDE 5 MG TABLET PO SCH (08:45)
[2023-10-28] MEDS: PANTOPRAZOLE SODIUM 40 MG TABLET.DR PO SCH (08:45)
[2023-10-28] MEDS: METOPROLOL TARTRATE 25 MG TABLET PO SCH ×2 (08:45→20:57)
[2023-10-28] MEDS: AMIODARONE HCL 200 MG TABLET PO SCH (08:45)
[2023-10-28] MEDS: GABAPENTIN 100 MG CAPSULE PO SCH ×2 (08:45→20:56)
[2023-10-28] MEDS: MIRALAX 17 GM POWD.PACK PO SCH (08:45)
[2023-10-28] MEDS: DOCUSATE SODIUM 100 MG CAPSULE PO SCH ×2 (08:45→20:56)
[2023-10-28] MEDS: FUROSEMIDE 40 MG TABLET PO SCH ×2 (08:45→16:37)
[2023-10-28] MEDS ORDERED: VANCOMYCIN IV 750 MG in IV DEXTROSE 5% 250 ML IV ONE (10:00)
[2023-10-28 11:11] VITALS: BP 112/55; TEMP 97.7; O2SAT 90
[2023-10-28 15:05] VITALS: BP 117/55; TEMP 99.4; O2SAT 95
[2023-10-28] MEDS ORDERED: ATOR10TA PO (15:20)
[2023-10-28] MEDS: CEFTRIAXONE 1 G in IV DEXTROSE 5% 50 ML IV SCH (16:13)
[2023-10-28] MEDS: ACETAMINOPHEN 325 MG TABLET PO PRN (16:37)
[2023-10-28] MEDS: ATORVASTATIN 10 MG TABLET PO SCH (18:32)
[2023-10-28 20:50] VITALS: BP 130/61; TEMP 98.4; O2SAT 94
[2023-10-28 23:21] VITALS: BP 132/60; TEMP 99.2; O2SAT 92
[2023-10-29 05:12] VITALS: BP 136/67; TEMP 98.4; O2SAT 98
[2023-10-29 07:15] LABS: SODIUM SERUM 131 mmol/L (136-145)
[2023-10-29 07:16] LABS: CALCIUM 9.3 mg/dL (8.5-10.1); CARBON DIOXIDE 26 mmol/L (21-32); CHLORIDE 95 mmol/L (98-107); CREATININE 5.9 mg/dL (0.6-1.3); GLUCOSE 89 mg/dL (74-106); PHOSPHOROUS 2.8 mg/dL (2.5-4.9); POTASSIUM 5.3 mmol/L (3.5-5.1); UREA NITROGEN, BLOOD 39 mg/dL (7-18)
[2023-10-29 09:11] VITALS: BP 155/68; TEMP 101.1; O2SAT 98
[2023-10-29] MEDS: FUROSEMIDE 40 MG TABLET PO SCH ×2 (09:15→16:55)
[2023-10-29] MEDS: MIRALAX 17 GM POWD.PACK PO SCH (09:15)
[2023-10-29] MEDS: METOPROLOL TARTRATE 25 MG TABLET PO SCH ×2 (09:15→20:44)
[2023-10-29] MEDS: FINASTERIDE 5 MG TABLET PO SCH (09:15)
[2023-10-29] MEDS: AMLODIPINE 5 MG TABLET PO SCH (09:15)
[2023-10-29] MEDS: DOCUSATE SODIUM 100 MG CAPSULE PO SCH ×2 (09:15→20:39)
[2023-10-29] MEDS: ASPIRIN 81 MG TAB.CHEW PO SCH (09:16)
[2023-10-29] MEDS: PANTOPRAZOLE SODIUM 40 MG TABLET.DR PO SCH (09:16)
[2023-10-29] MEDS: GABAPENTIN 100 MG CAPSULE PO SCH ×2 (09:16→20:38)
[2023-10-29] MEDS: AMIODARONE HCL 200 MG TABLET PO SCH (09:16)
[2023-10-29] MEDS: ACETAMINOPHEN 325 MG TABLET PO PRN (09:40)
[2023-10-29 09:47] LABS: BASOPHILS # (AUTO) 0.1 K/UL (0.0-0.2); DIFFERENTIAL COMMENT 0; EOSINOPHILS # (AUTO) 0.1 K/uL (0.0-0.7); EOSINOPHILS % (AUTO) 1.4 % (0.0-7.0); HEMATOCRIT 25.3 % (36.7-47.1); HEMOGLOBIN 8.2 g/dL (12.5-16.3); LYMPHOCYTES # (AUTO) 0.6 K/uL (0.8-4.8); LYMPHOCYTES % (AUTO) 9.3 % (20.5-51.5); MEAN CORPUSCULAR HEMOGLOBIN 27.6 uug (23.8-33.4); MEAN CORPUSCULAR HGB CONC 33 g/dL (32.5-36.3); MEAN CORPUSCULAR VOLUME 84.9 fL (73.0-96.2); MONOCYTES # (AUTO) 0.6 K/uL (0.1-1.30); MONOCYTES % (AUTO) 9.6 % (0.0-11.0); NEUTROPHILS # (AUTO) 5.3 K/uL (1.8-8.9); NEUTROPHILS % (AUTO) 78.7 % (38.5-71.5); PLATELET COUNT (AUTO) 303 K/uL (152-348); RED BLOOD CELL COUNT(AUTO) 2.98 MIL/uL (4.06-5.63); RED CELL DISTRIBUTION WIDTH 20.2 % (12.1-16.2); WHITE BLOOD COUNT (AUTO) 6.7 K/uL (3.6-10.2)
[2023-10-29 11:31] VITALS: BP 114/55; TEMP 98.4; O2SAT 98
[2023-10-29] MEDS: CEFTRIAXONE 1 G in IV DEXTROSE 5% 50 ML IV SCH (15:11)
[2023-10-29 16:00] VITALS: BP 119/55; TEMP 97.3; O2SAT 96
[2023-10-29] MEDS: ATORVASTATIN 10 MG TABLET PO SCH (16:55)
[2023-10-29 19:30] VITALS: BP 134/69; TEMP 97.5; O2SAT 96
[2023-10-29] MEDS: NORMAL SALINE IV SCH (19:58)
[2023-10-29] MEDS: MEROPENEM IV SCH (19:58)
[2023-10-30 00:44] VITALS: BP 132/61; TEMP 99.1; O2SAT 93
[2023-10-30 06:38] VITALS: BP 140/61; TEMP 98.4; O2SAT 93
[2023-10-30] MEDS: ASPIRIN 81 MG TAB.CHEW PO SCH (08:19)
[2023-10-30] MEDS: MIRALAX 17 GM POWD.PACK PO SCH (08:19)
[2023-10-30] MEDS: METOPROLOL TARTRATE 25 MG TABLET PO SCH ×2 (08:20→20:49)
[2023-10-30] MEDS: GABAPENTIN 100 MG CAPSULE PO SCH ×2 (08:20→20:42)
[2023-10-30] MEDS: AMLODIPINE 5 MG TABLET PO SCH (08:20)
[2023-10-30] MEDS: DOCUSATE SODIUM 100 MG CAPSULE PO SCH ×2 (08:20→20:42)
[2023-10-30] MEDS: PANTOPRAZOLE SODIUM 40 MG TABLET.DR PO SCH (08:20)
[2023-10-30] MEDS: FUROSEMIDE 40 MG TABLET PO SCH ×2 (08:20→16:12)
[2023-10-30] MEDS: AMIODARONE HCL 200 MG TABLET PO SCH (08:21)
[2023-10-30] MEDS: FINASTERIDE 5 MG TABLET PO SCH (08:21)
[2023-10-30 09:30] LABS: BASOPHILS % (AUTO) 0.9 % (0.0-2.0); DIFFERENTIAL COMMENT 0; EOSINOPHILS # (AUTO) 0.2 K/uL (0.0-0.7); EOSINOPHILS % (AUTO) 4.4 % (0.0-7.0); LYMPHOCYTES # (AUTO) 0.8 K/uL (0.8-4.8); LYMPHOCYTES % (AUTO) 16.5 % (20.5-51.5); MEAN CORPUSCULAR HEMOGLOBIN 27.8 uug (23.8-33.4); MEAN CORPUSCULAR HGB CONC 32 g/dL (32.5-36.3); MEAN CORPUSCULAR VOLUME 85.9 fL (73.0-96.2); MONOCYTES # (AUTO) 0.6 K/uL (0.1-1.30); MONOCYTES % (AUTO) 13.2 % (0.0-11.0); NEUTROPHILS # (AUTO) 3.1 K/uL (1.8-8.9); PLATELET COUNT (AUTO) 254 K/uL (152-348); RED BLOOD CELL COUNT(AUTO) 2.67 MIL/uL (4.06-5.63); RED CELL DISTRIBUTION WIDTH 20.2 % (12.1-16.2); WHITE BLOOD COUNT (AUTO) 4.7 K/uL (3.6-10.2)
[2023-10-30 09:36] LABS: HEMOGLOBIN 7.4 g/dL (12.5-16.3)
[2023-10-30 09:44] LABS: CALCIUM 9.3 mg/dL (8.5-10.1); CARBON DIOXIDE 27 mmol/L (21-32); CHLORIDE 97 mmol/L (98-107); CREATININE 5.4 mg/dL (0.6-1.3); GLUCOSE 89 mg/dL (74-106); POTASSIUM 4.4 mmol/L (3.5-5.1); SODIUM SERUM 134 mmol/L (136-145); UREA NITROGEN, BLOOD 36 mg/dL (7-18)
[2023-10-30 10:21] LABS: HIV-1/2 ANTIBODY NON REACTIVE (NONREACTIVE)
[2023-10-30 10:23] LABS: HIV-1 p24 ANTIGEN REACTIVE (NONREACTIVE)
[2023-10-30 11:15] VITALS: BP 123/60; TEMP 98.2; O2SAT 98
[2023-10-30 15:44] LABS: IRON, SERUM 27 ug/dL (50-175)
[2023-10-30 15:57] VITALS: BP 125/54; TEMP 98.5; O2SAT 97
[2023-10-30] MEDS: ATORVASTATIN 10 MG TABLET PO SCH (17:03)
[2023-10-30 20:00] VITALS: BP 140/69; TEMP 99.2; O2SAT 94
[2023-10-30] MEDS: NORMAL SALINE IV SCH (20:11)
[2023-10-30] MEDS: MEROPENEM IV SCH (20:11)
[2023-10-30] MEDS: ACETAMINOPHEN 325 MG TABLET PO PRN (20:51)
[2023-10-31] VITALS (7 sets, daily range): BP systolic 114–139; BP diastolic 57–64; TEMP 97.5–98.7; O2SAT 94–98
[2023-10-31 07:51] LABS: CALCIUM 9.3 mg/dL (8.5-10.1); CARBON DIOXIDE 26 mmol/L (21-32); CHLORIDE 97 mmol/L (98-107); CREATININE 6.6 mg/dL (0.6-1.3); GLUCOSE 87 mg/dL (74-106); PHOSPHOROUS 3.7 mg/dL (2.5-4.9); SODIUM SERUM 132 mmol/L (136-145); UREA NITROGEN, BLOOD 50 mg/dL (7-18); VANCOMYCIN,RANDOM 14.1 ug/mL (20.0-30.0)
[2023-10-31] MEDS: GABAPENTIN 100 MG CAPSULE PO SCH ×2 (08:01→21:00)
[2023-10-31] MEDS: AMLODIPINE 5 MG TABLET PO SCH (08:01)
[2023-10-31] MEDS: DOCUSATE SODIUM 100 MG CAPSULE PO SCH ×2 (08:01→20:52)
[2023-10-31] MEDS: PANTOPRAZOLE SODIUM 40 MG TABLET.DR PO SCH (08:01)
[2023-10-31] MEDS: ASPIRIN 81 MG TAB.CHEW PO SCH (08:01)
[2023-10-31] MEDS: FINASTERIDE 5 MG TABLET PO SCH (08:01)
[2023-10-31] MEDS: MIRALAX 17 GM POWD.PACK PO SCH (08:01)
[2023-10-31] MEDS: AMIODARONE HCL 200 MG TABLET PO SCH (08:01)
[2023-10-31] MEDS: FUROSEMIDE 40 MG TABLET PO SCH ×2 (08:02→16:45)
[2023-10-31] MEDS: METOPROLOL TARTRATE 25 MG TABLET PO SCH ×2 (08:02→20:53)
[2023-10-31 10:00] LABS: ALBUMIN 1.8 g/dL (3.4-5.0); BILIRUBIN,DIRECT 0.1 mg/dL (0.0-0.2); BILIRUBIN,TOTAL 0.4 mg/dL (0.2-1.0); TOTAL PROTEIN, SERUM 6.1 g/dL (6.4-8.2)
[2023-10-31 15:46] LABS: HEMATOCRIT 21.1 % (36.7-47.1)
[2023-10-31] MEDS: ATORVASTATIN 10 MG TABLET PO SCH (17:10)
[2023-10-31] MEDS: MEROPENEM 0.5 G in IV NORMAL SALINE 50 ML IV SCH (20:52)
[2023-11-01] VITALS: BP 130/61; TEMP 98.1; O2SAT 97
[2023-11-01 03:00] VITALS: BP 140/55; TEMP 97.8
[2023-11-01 04:00] VITALS: BP 133/50; TEMP 98.1; O2SAT 98
[2023-11-01 07:29] LABS: BASOPHILS % (AUTO) 0.5 % (0.0-2.0); EOSINOPHILS # (AUTO) 0.2 K/uL (0.0-0.7); EOSINOPHILS % (AUTO) 2.5 % (0.0-7.0); HEMATOCRIT 24.8 % (36.7-47.1); HEMOGLOBIN 8.2 g/dL (12.5-16.3); LYMPHOCYTES # (AUTO) 0.8 K/uL (0.8-4.8); LYMPHOCYTES % (AUTO) 11.8 % (20.5-51.5); MEAN CORPUSCULAR HGB CONC 33 g/dL (32.5-36.3); MEAN CORPUSCULAR VOLUME 84.6 fL (73.0-96.2); MONOCYTES # (AUTO) 0.4 K/uL (0.1-1.30); MONOCYTES % (AUTO) 5.4 % (0.0-11.0); NEUTROPHILS # (AUTO) 5.4 K/uL (1.8-8.9); NEUTROPHILS % (AUTO) 79.8 % (38.5-71.5); PLATELET COUNT (AUTO) 295 K/uL (152-348); RED BLOOD CELL COUNT(AUTO) 2.94 MIL/uL (4.06-5.63); RED CELL DISTRIBUTION WIDTH 19.2 % (12.1-16.2); WHITE BLOOD COUNT (AUTO) 6.8 K/uL (3.6-10.2)
[2023-11-01 07:31] LABS: DIFFERENTIAL COMMENT 1
[2023-11-01 08:11] LABS: ALANINE AMINOTRANSFERASE 7 U/L (16-63); ALBUMIN 1.9 g/dL (3.4-5.0); ALKALINE PHOSPHATASE 40 U/L (50-136); ASPARTATE AMINOTRANSFERASE 7 U/L (15-37); BILIRUBIN,TOTAL 0.4 mg/dL (0.2-1.0); CARBON DIOXIDE 25 mmol/L (21-32); CHLORIDE 97 mmol/L (98-107); GLUCOSE 104 mg/dL (74-106); MAGNESIUM 2.1 mg/dL (1.8-2.4); PHOSPHOROUS 3.6 mg/dL (2.5-4.9); POTASSIUM 5.1 mmol/L (3.5-5.1); SODIUM SERUM 131 mmol/L (136-145); TOTAL PROTEIN, SERUM 6.1 g/dL (6.4-8.2); UREA NITROGEN, BLOOD 66 mg/dL (7-18)
[2023-11-01 08:43] LABS: CREATININE 7.7 mg/dL (0.6-1.3)
[2023-11-01] MEDS: FINASTERIDE 5 MG TABLET PO SCH (09:00)
[2023-11-01] MEDS: METOPROLOL TARTRATE 25 MG TABLET PO SCH ×2 (09:00→21:55)
[2023-11-01] MEDS: AMIODARONE HCL 200 MG TABLET PO SCH (09:00)
[2023-11-01] MEDS: AMLODIPINE 5 MG TABLET PO SCH (09:00)
[2023-11-01] MEDS: DOCUSATE SODIUM 100 MG CAPSULE PO SCH ×2 (09:00→21:55)
[2023-11-01] MEDS: ASPIRIN 81 MG TAB.CHEW PO SCH (09:00)
[2023-11-01] MEDS: FUROSEMIDE 40 MG TABLET PO SCH ×2 (09:00→17:00)
[2023-11-01] MEDS: GABAPENTIN 100 MG CAPSULE PO SCH ×2 (09:00→21:55)
[2023-11-01] MEDS: MIRALAX 17 GM POWD.PACK PO SCH (09:00)
[2023-11-01] MEDS: PANTOPRAZOLE SODIUM 40 MG TABLET.DR PO SCH (09:00)
[2023-11-01] MEDS ORDERED: HEPARIN/NS 500 ML ONE (10:23)
[2023-11-01] MEDS ORDERED: POLYMYXIN B SULFATE 500,000 UNITS VIAL ONE (10:23)
[2023-11-01] MEDS ORDERED: HEPARIN SODIUM,PORCINE 1,000 UNITS/ML VIAL ONE (10:23)
[2023-11-01] MEDS ORDERED: HEPARIN SODIUM,PORCINE 5,000 UNITS/ML VIAL ONE (10:23)
[2023-11-01] MEDS ORDERED: THROMBIN (BOVINE) 5,000 UNITS VIAL ONE (10:24)
[2023-11-01] MEDS ORDERED: LIDOCAINE HCL 1% 20 ML VIAL ONE (10:24)
[2023-11-01] MEDS ORDERED: FENTANYL CITRATE 250 MCG/5 ML AMPUL ONE (10:47)
[2023-11-01] MEDS ORDERED: CLINDAMYCIN 600 MG PIGGYBACK**ER OMNI IV ONE (10:48)
[2023-11-01] MEDS ORDERED: FAMOTIDINE. 20 MG/2 ML VIAL IV ONE (10:48)
[2023-11-01] MEDS ORDERED: ROCURONIUM BROMIDE 50 MG/5 ML VIAL ONE (12:08)
[2023-11-01] MEDS ORDERED: IOHEXOL 300MG/ML 50 ML VIAL ONE (12:17)
[2023-11-01] MEDS ORDERED: BUPIVACAINE 0.25% 30 ML VIAL ONE (13:35)
[2023-11-01] MEDS ORDERED: ONDANSETRON 4 MG/2 ML VIAL ONE (14:09)
[2023-11-01] MEDS ORDERED: LIDOCAINE-MPF 2% 5 ML VIAL ONE (14:09)
[2023-11-01] MEDS ORDERED: PROPOFOL 200 MG/20 ML BOTTLE ONE (14:09)
[2023-11-01] MEDS ORDERED: NEOSTIGMINE METHYLSULFATE 10 MG/10 ML VIAL ONE (14:09)
[2023-11-01] MEDS ORDERED: GLYCOPYRROLATE 0.2 MG/ML VIAL ONE (14:09)
[2023-11-01] MEDS ORDERED: METOCLOPRAMIDE HCL 10 MG/2 ML VIAL ONE (14:09)
[2023-11-01 15:30] VITALS: BP 125/54; TEMP 97.9; O2SAT 98
[2023-11-01] MEDS: ATORVASTATIN 10 MG TABLET PO SCH (17:20)
[2023-11-01 20:00] VITALS: BP 136/67; TEMP 97.4; O2SAT 97
[2023-11-01] MEDS ORDERED: VANCOMYCIN IV 1,000 MG in IV DEXTROSE 5% 250 ML IV ONE (20:00)
[2023-11-01] MEDS: MEROPENEM 0.5 G in IV NORMAL SALINE 50 ML IV SCH (21:45)
[2023-11-02] VITALS: BP 141/80; TEMP 97.4; O2SAT 97
[2023-11-02 04:00] VITALS: BP 146/68; TEMP 97.4; O2SAT 97
[2023-11-02 09:42] LABS: HIV-1 p24 ANTIGEN NON REACTIVE (NONREACTIVE); HIV-1/2 ANTIBODY NON REACTIVE (NONREACTIVE)
[2023-11-02] MEDS: ASPIRIN 81 MG TAB.CHEW PO SCH (11:07)
[2023-11-02] MEDS: MIRALAX 17 GM POWD.PACK PO SCH (11:07)
[2023-11-02] MEDS: GABAPENTIN 100 MG CAPSULE PO SCH ×2 (11:08→20:15)
[2023-11-02] MEDS: DOCUSATE SODIUM 100 MG CAPSULE PO SCH ×2 (11:08→20:15)
[2023-11-02] MEDS: FUROSEMIDE 40 MG TABLET PO SCH ×2 (11:08→17:43)
[2023-11-02] MEDS: AMIODARONE HCL 200 MG TABLET PO SCH (11:08)
[2023-11-02] MEDS: FINASTERIDE 5 MG TABLET PO SCH (11:09)
[2023-11-02] MEDS: METOPROLOL TARTRATE 25 MG TABLET PO SCH ×2 (11:09→20:15)
[2023-11-02] MEDS: AMLODIPINE 5 MG TABLET PO SCH (11:10)
[2023-11-02] MEDS: PANTOPRAZOLE SODIUM 40 MG TABLET.DR PO SCH (11:10)
[2023-11-02 12:07] VITALS: BP 142/68; TEMP 97.7; O2SAT 95
[2023-11-02 16:27] VITALS: BP 142/63; TEMP 97.9; O2SAT 98
[2023-11-02] MEDS: ATORVASTATIN 10 MG TABLET PO SCH (17:44)
[2023-11-02 20:05] VITALS: BP 137/70; TEMP 98.6; O2SAT 96
[2023-11-02] MEDS: MEROPENEM 0.5 G in IV NORMAL SALINE 50 ML IV SCH (20:15)
[2023-11-03 04:10] VITALS: BP 136/74; TEMP 97.9; O2SAT 97
[2023-11-03 06:56] LABS: BASOPHILS % (AUTO) 0.6 % (0.0-2.0); EOSINOPHILS # (AUTO) 0.3 K/uL (0.0-0.7); EOSINOPHILS % (AUTO) 4.5 % (0.0-7.0); HEMOGLOBIN 8.8 g/dL (12.5-16.3); LYMPHOCYTES # (AUTO) 0.8 K/uL (0.8-4.8); LYMPHOCYTES % (AUTO) 10.4 % (20.5-51.5); MEAN CORPUSCULAR HGB CONC 33 g/dL (32.5-36.3); MEAN CORPUSCULAR VOLUME 86.1 fL (73.0-96.2); MONOCYTES # (AUTO) 0.7 K/uL (0.1-1.30); MONOCYTES % (AUTO) 9.5 % (0.0-11.0); NEUTROPHILS # (AUTO) 5.7 K/uL (1.8-8.9); PLATELET COUNT (AUTO) 334 K/uL (152-348); RED BLOOD CELL COUNT(AUTO) 3.14 MIL/uL (4.06-5.63); RED CELL DISTRIBUTION WIDTH 19.2 % (12.1-16.2); WHITE BLOOD COUNT (AUTO) 7.6 K/uL (3.6-10.2)
[2023-11-03 07:03] LABS: DIFFERENTIAL COMMENT 1
[2023-11-03 07:12] LABS: ALANINE AMINOTRANSFERASE 7 U/L (16-63); ALBUMIN 1.9 g/dL (3.4-5.0); ALKALINE PHOSPHATASE 40 U/L (50-136); ASPARTATE AMINOTRANSFERASE 7 U/L (15-37); BILIRUBIN,TOTAL 0.2 mg/dL (0.2-1.0); CARBON DIOXIDE 25 mmol/L (21-32); CHLORIDE 98 mmol/L (98-107); CREATININE 6.9 mg/dL (0.6-1.3); GLUCOSE 92 mg/dL (74-106); MAGNESIUM 2.3 mg/dL (1.8-2.4); PHOSPHOROUS 4.3 mg/dL (2.5-4.9); POTASSIUM 4.8 mmol/L (3.5-5.1); SODIUM SERUM 132 mmol/L (136-145); TOTAL PROTEIN, SERUM 6.2 g/dL (6.4-8.2); UREA NITROGEN, BLOOD 42 mg/dL (7-18)
[2023-11-03 08:00] VITALS: BP 144/72; TEMP 97.6; O2SAT 95
[2023-11-03] MEDS: MIRALAX 17 GM POWD.PACK PO SCH (09:30)
[2023-11-03] MEDS: FUROSEMIDE 40 MG TABLET PO SCH (09:30)
[2023-11-03] MEDS: DOCUSATE SODIUM 100 MG CAPSULE PO SCH (09:31)
[2023-11-03] MEDS: ASPIRIN 81 MG TAB.CHEW PO SCH (09:31)
[2023-11-03] MEDS: FINASTERIDE 5 MG TABLET PO SCH (09:31)
[2023-11-03] MEDS: AMIODARONE HCL 200 MG TABLET PO SCH (09:31)
[2023-11-03] MEDS: METOPROLOL TARTRATE 25 MG TABLET PO SCH (09:32)
[2023-11-03] MEDS: AMLODIPINE 5 MG TABLET PO SCH (09:32)
[2023-11-03] MEDS: GABAPENTIN 100 MG CAPSULE PO SCH (09:33)
[2023-11-03] MEDS: PANTOPRAZOLE SODIUM 40 MG TABLET.DR PO SCH (09:33)
[2023-11-03] MEDS: CALCIUM ACETATE 667 MG CAP/TAB PO SCH ×2 (09:34→12:40)
[2023-11-03 11:45] VITALS: BP 134/71; TEMP 96.8; O2SAT 99
[2023-11-03] MEDS ORDERED: RXAMI IV (13:10)
[2023-11-03] MEDS ORDERED: AMIO200T6 PO (13:10)
[2023-11-03] MEDS ORDERED: METO25TA6 PO (13:10)
[2023-11-03] MEDS ORDERED: ASPI81TA31 PO (13:10)
[2023-11-03 16:20] VITALS: BP 124/67; TEMP 97.3; O2SAT 96
== END 2023-11-03 17:40 | DRG 853 ==
LOC: ER 15:31 → TELE3 19:48 → MEDSURG3 11-02 10:17 → MED 11-02 22:33
PROVIDERS: ADMIT Internal Medicine; ATTEND Internal Medicine
PROC: 5A1D70Z Performance of Urinary Filtration, Intermittent, Less than 6 Hours Per Day (ICD-10-PCS; 2023-10-28)
PROC: 03B83ZZ Excision of Left Brachial Artery, Percutaneous Approach (ICD-10-PCS; principal; 2023-11-01)
PROC: 03L Upper Arteries, Occlusion (ICD-10-PCS; 2023-11-01)
PROC: 0HBCXZZ Excision of Left Upper Arm Skin, External Approach (ICD-10-PCS; 2023-11-01)
PROC: 0JH63XZ Insertion of Tunneled Vascular Access Device into Chest Subcutaneous Tissue and Fascia, Percutaneous Approach (ICD-10-PCS; 2023-11-01)
PROC: 02HV33Z Insertion of Infusion Device into Superior Vena Cava, Percutaneous Approach (ICD-10-PCS; 2023-11-01)
PROC: B518YZA Fluoroscopy of Superior Vena Cava using Other Contrast, Guidance (ICD-10-PCS; 2023-11-01)
DX: A41.51 Sepsis due to Escherichia coli [E. coli] (principal); G92.8 Other toxic encephalopathy; N18.6 End stage renal disease; I50.33 Acute on chronic diastolic (congestive) heart failure; I21.A1 Myocardial infarction type 2; T82.7XXA Infection and inflammatory reaction due to other cardiac and vascular devices, implants and grafts, initial encounter; L03.114 Cellulitis of left upper limb; I12.0 Hypertensive chronic kidney disease with stage 5 chronic kidney disease or end stage renal disease; N17.9 Acute kidney failure, unspecified; N39.0 Urinary tract infection, site not specified; I13.2 Hypertensive heart and chronic kidney disease with heart failure and with stage 5 chronic kidney disease, or end stage renal disease; T82.510A Breakdown (mechanical) of surgically created arteriovenous fistula, initial encounter; E44.0 Moderate protein-calorie malnutrition; T82.898A Other specified complication of vascular prosthetic devices, implants and grafts, initial encounter; R65.20 Severe sepsis without septic shock; Z99.2 Dependence on renal dialysis; E11.22 Type 2 diabetes mellitus with diabetic chronic kidney disease; I25.2 Old myocardial infarction; I48.0 Paroxysmal atrial fibrillation; I25.5 Ischemic cardiomyopathy; M17.31 Unilateral post-traumatic osteoarthritis, right knee; E11.42 Type 2 diabetes mellitus with diabetic polyneuropathy; Z88.1 Allergy status to other antibiotic agents; D63.1 Anemia in chronic kidney disease; M89.8X9 Other specified disorders of bone, unspecified site; N40.0 Benign prostatic hyperplasia without lower urinary tract symptoms; I25.10 Atherosclerotic heart disease of native coronary artery without angina pectoris; E78.5 Hyperlipidemia, unspecified; Z79.899 Other long term (current) drug therapy; Z86.14 Personal history of Methicillin resistant Staphylococcus aureus infection; E87.5 Hyperkalemia; L98.492 Non-pressure chronic ulcer of skin of other sites with fat layer exposed; K42.9 Umbilical hernia without obstruction or gangrene; K40.90 Unilateral inguinal hernia, without obstruction or gangrene, not specified as recurrent; F32.A Depression, unspecified; Z86.16 Personal history of COVID-19; K57.90 Diverticulosis of intestine, part unspecified, without perforation or abscess without bleeding; M81.8 Other osteoporosis without current pathological fracture; M51.9 Unspecified thoracic, thoracolumbar and lumbosacral intervertebral disc disorder; Z86.19 Personal history of other infectious and parasitic diseases; Z87.448 Personal history of other diseases of urinary system; G31.84 Mild cognitive impairment of uncertain or unknown etiology; Z85.828 Personal history of other malignant neoplasm of skin
CPT/HCPCS: 36415; 70030-TC; 71045; 83550; 83605; 83735; 84100; 84484; 85018; 85025; 85730; 86803; 86850; 86900; 86901; 86920; 87040; 87536; 87806; 90937; 93005; A4606; A4649; A4663; A6213; C1758; G0378; J0696; J1644; J2185; J2405; J2765; J3010; J3370; J3490; J7050; L8699; P9016; Q9967

== ENCOUNTER 2023-12-03 11:50 | Inpatient (IN) | payer MEDICARE, OTHER ==
[~2023-12-03] VITALS: Ht 182.9 cm; Wt 71.2 kg
[~2023-12-03 11:50] MED LIST changes: -AMIO200T5 PO; +AMIO200T6 PO; +ASPI81TA31 PO; +ATOR10TA PO; -ATOR40TA PO; +CALC667T2 PO; +DOCU100C36 PO; +FOLI0.8T43 PO; -GUAI-1189 PO; -METO-356 PO; +METO25TA6 PO; +PANT40TA2 PO; +POLY17PO4 PO; +RXAMI IV
[2023-12-03 13:40] LABS: BASOPHILS # (AUTO) 0.1 K/UL (0.0-0.2); BASOPHILS % (AUTO) 1.4 % (0.0-2.0); CALCIUM 9.7 mg/dL (8.5-10.1); CARBON DIOXIDE 26 mmol/L (21-32); CHLORIDE 98 mmol/L (98-107); DIFFERENTIAL COMMENT 0; EOSINOPHILS # (AUTO) 0.1 K/uL (0.0-0.7); EOSINOPHILS % (AUTO) 1.5 % (0.0-7.0); GLUCOSE 118 mg/dL (74-106); HEMATOCRIT 32.7 % (36.7-47.1); HEMOGLOBIN 10.4 g/dL (12.5-16.3); LYMPHOCYTES % (AUTO) 11.7 % (20.5-51.5); MEAN CORPUSCULAR HEMOGLOBIN 29.8 uug (23.8-33.4); MEAN CORPUSCULAR HGB CONC 32 g/dL (32.5-36.3); MEAN CORPUSCULAR VOLUME 93.3 fL (73.0-96.2); MONOCYTES # (AUTO) 0.8 K/uL (0.1-1.30); MONOCYTES % (AUTO) 9.1 % (0.0-11.0); NEUTROPHILS # (AUTO) 6.5 K/uL (1.8-8.9); NEUTROPHILS % (AUTO) 76.3 % (38.5-71.5); PLATELET COUNT (AUTO) 209 K/uL (152-348); POTASSIUM 4.8 mmol/L (3.5-5.1); RED CELL DISTRIBUTION WIDTH 25.6 % (12.1-16.2); SODIUM SERUM 137 mmol/L (136-145); UREA NITROGEN, BLOOD 62 mg/dL (7-18); WHITE BLOOD COUNT (AUTO) 8.5 K/uL (3.6-10.2)
[2023-12-03 13:50] LABS: CREATININE 7.9 mg/dL (0.6-1.3)
[2023-12-03] MEDS ORDERED: MORPHINE SULFATE 2 MG/1 ML DISP.SYRIN IV PRN (15:15)
[2023-12-03] MEDS ORDERED: MAGNESIUM HYDROXIDE 30 ML LIQUID UDC PO PRN (15:15)
[2023-12-03] MEDS ORDERED: ACETAMINOPHEN 325 MG TABLET PO PRN (15:15)
[2023-12-03] MEDS ORDERED: ONDANSETRON 4 MG/2 ML VIAL IV PRN (15:15)
[2023-12-03] MEDS ORDERED: HYDROCODONE/APAP 5-325MG TABLET PO PRN (15:15)
[2023-12-03] MEDS ORDERED: HEPARIN SODIUM,PORCINE 5,000 UNITS/ML VIAL SQ ONE (21:00)
[2023-12-04] MEDS ORDERED: HEPARIN SODIUM,PORCINE 5,000 UNITS/ML VIAL ONE (03:27)
[2023-12-04 07:35] LABS: BASOPHILS # (AUTO) 0.1 K/UL (0.0-0.2); BASOPHILS % (AUTO) 1.3 % (0.0-2.0); CALCIUM 9.5 mg/dL (8.5-10.1); CARBON DIOXIDE 26 mmol/L (21-32); CHLORIDE 98 mmol/L (98-107); DIFFERENTIAL COMMENT 0; EOSINOPHILS # (AUTO) 0.2 K/uL (0.0-0.7); GLUCOSE 112 mg/dL (74-106); HEMATOCRIT 32.8 % (36.7-47.1); HEMOGLOBIN 10.5 g/dL (12.5-16.3); LYMPHOCYTES % (AUTO) 12.2 % (20.5-51.5); MAGNESIUM 2.3 mg/dL (1.8-2.4); MEAN CORPUSCULAR HEMOGLOBIN 29.7 uug (23.8-33.4); MEAN CORPUSCULAR HGB CONC 32 g/dL (32.5-36.3); MEAN CORPUSCULAR VOLUME 92.6 fL (73.0-96.2); MONOCYTES # (AUTO) 0.7 K/uL (0.1-1.30); MONOCYTES % (AUTO) 8.4 % (0.0-11.0); NEUTROPHILS # (AUTO) 6.1 K/uL (1.8-8.9); NEUTROPHILS % (AUTO) 75.1 % (38.5-71.5); PHOSPHOROUS 5.3 mg/dL (2.5-4.9); PLATELET COUNT (AUTO) 201 K/uL (152-348); POTASSIUM 4.8 mmol/L (3.5-5.1); RED BLOOD CELL COUNT(AUTO) 3.54 MIL/uL (4.06-5.63); RED CELL DISTRIBUTION WIDTH 25.3 % (12.1-16.2); SODIUM SERUM 135 mmol/L (136-145); UREA NITROGEN, BLOOD 73 mg/dL (7-18); WHITE BLOOD COUNT (AUTO) 8.1 K/uL (3.6-10.2)
[2023-12-04 07:45] LABS: CREATININE 9.2 mg/dL (0.6-1.3)
[2023-12-04 10:00] VITALS: O2SAT 98
[2023-12-04] MEDS: AMLODIPINE 5 MG TABLET PO SCH (14:00)
[2023-12-04] MEDS: METOPROLOL TARTRATE 25 MG TABLET PO SCH ×2 (14:00→21:00)
[2023-12-04] MEDS: AMIODARONE HCL 200 MG TABLET PO SCH (14:00)
[2023-12-04] MEDS ORDERED: ASPIRIN 81 MG TAB.CHEW ONE (15:30)
[2023-12-04] MEDS ORDERED: DOCUSATE SODIUM 100 MG CAPSULE PO ONE (15:30)
[2023-12-04] MEDS ORDERED: GABAPENTIN 100 MG CAPSULE ONE (15:31)
[2023-12-04] MEDS ORDERED: PANTOPRAZOLE SODIUM 40 MG TABLET.DR PO ONE (15:31)
[2023-12-04] MEDS ORDERED: MIRALAX 17 GM POWD.PACK ONE (15:31)
[2023-12-04] MEDS ORDERED: AMLODIPINE 5 MG TABLET ONE (15:32)
[2023-12-04] MEDS ORDERED: FINASTERIDE 5 MG TABLET ONE (15:32)
[2023-12-04 16:18] VITALS: BP 176/84; TEMP 97.7; O2SAT 98
[2023-12-04] MEDS: ASPIRIN 81 MG TAB.CHEW PO SCH (17:58)
[2023-12-04] MEDS: DOCUSATE SODIUM 100 MG CAPSULE PO SCH ×2 (17:58→20:13)
[2023-12-04] MEDS: PANTOPRAZOLE SODIUM 40 MG TABLET.DR PO SCH (17:59)
[2023-12-04] MEDS: GABAPENTIN 100 MG CAPSULE PO SCH ×2 (17:59→20:13)
[2023-12-04] MEDS: FOLIC ACID/VITAMIN B COMP W-C TABLET PO SCH (18:00)
[2023-12-04] MEDS: CALCIUM ACETATE 667 MG CAP/TAB PO SCH (18:00)
[2023-12-04] MEDS: FINASTERIDE 5 MG TABLET PO SCH (18:00)
[2023-12-04] MEDS: MIRALAX 17 GM POWD.PACK PO SCH (18:00)
[2023-12-04 20:00] VITALS: BP 170/82; TEMP 97.1; O2SAT 100
[2023-12-04] MEDS: ATORVASTATIN 10 MG TABLET PO SCH (20:13)
[2023-12-05 04:00] VITALS: BP 102/64; TEMP 97.7; O2SAT 98
[2023-12-05] MEDS: PANTOPRAZOLE SODIUM 40 MG TABLET.DR PO SCH (06:03)
[2023-12-05 07:27] LABS: BASOPHILS # (AUTO) 0.1 K/UL (0.0-0.2); EOSINOPHILS # (AUTO) 0.2 K/uL (0.0-0.7); EOSINOPHILS % (AUTO) 3.5 % (0.0-7.0); HEMATOCRIT 31.2 % (36.7-47.1); LYMPHOCYTES # (AUTO) 0.9 K/uL (0.8-4.8); LYMPHOCYTES % (AUTO) 13.7 % (20.5-51.5); MEAN CORPUSCULAR HEMOGLOBIN 29.7 uug (23.8-33.4); MEAN CORPUSCULAR HGB CONC 32 g/dL (32.5-36.3); MEAN CORPUSCULAR VOLUME 92.8 fL (73.0-96.2); MONOCYTES # (AUTO) 0.6 K/uL (0.1-1.30); MONOCYTES % (AUTO) 9.2 % (0.0-11.0); NEUTROPHILS # (AUTO) 4.8 K/uL (1.8-8.9); NEUTROPHILS % (AUTO) 72.6 % (38.5-71.5); PLATELET COUNT (AUTO) 172 K/uL (152-348); RED BLOOD CELL COUNT(AUTO) 3.36 MIL/uL (4.06-5.63); RED CELL DISTRIBUTION WIDTH 24.5 % (12.1-16.2); WHITE BLOOD COUNT (AUTO) 6.6 K/uL (3.6-10.2)
[2023-12-05 07:28] LABS: DIFFERENTIAL COMMENT 1
[2023-12-05 08:23] LABS: ALANINE AMINOTRANSFERASE 17 U/L (16-63); ALBUMIN 2.3 g/dL (3.4-5.0); ALKALINE PHOSPHATASE 63 U/L (50-136); ASPARTATE AMINOTRANSFERASE 12 U/L (15-37); BILIRUBIN,TOTAL 0.4 mg/dL (0.2-1.0); CALCIUM 9.3 mg/dL (8.5-10.1); CARBON DIOXIDE 28 mmol/L (21-32); CHLORIDE 101 mmol/L (98-107); GLUCOSE 90 mg/dL (74-106); MAGNESIUM 2.4 mg/dL (1.8-2.4); PHOSPHOROUS 4.5 mg/dL (2.5-4.9); POTASSIUM 4.5 mmol/L (3.5-5.1); SODIUM SERUM 138 mmol/L (136-145); TOTAL PROTEIN, SERUM 6.2 g/dL (6.4-8.2); UREA NITROGEN, BLOOD 52 mg/dL (7-18)
[2023-12-05] MEDS: ASPIRIN 81 MG TAB.CHEW PO SCH (09:03)
[2023-12-05] MEDS: DOCUSATE SODIUM 100 MG CAPSULE PO SCH ×2 (09:03→20:53)
[2023-12-05] MEDS: AMIODARONE HCL 200 MG TABLET PO SCH (09:03)
[2023-12-05] MEDS: CALCIUM ACETATE 667 MG CAP/TAB PO SCH ×3 (09:03→17:18)
[2023-12-05] MEDS: MIRALAX 17 GM POWD.PACK PO SCH (09:04)
[2023-12-05] MEDS: FINASTERIDE 5 MG TABLET PO SCH (09:04)
[2023-12-05] MEDS: METOPROLOL TARTRATE 25 MG TABLET PO SCH ×2 (09:04→21:54)
[2023-12-05] MEDS: AMLODIPINE 5 MG TABLET PO SCH (09:04)
[2023-12-05] MEDS: GABAPENTIN 100 MG CAPSULE PO SCH ×2 (09:04→20:53)
[2023-12-05 11:30] VITALS: BP 151/80; TEMP 97.6; O2SAT 98
[2023-12-05 16:00] VITALS: BP 160/80; TEMP 98.3; O2SAT 98
[2023-12-05] MEDS: FOLIC ACID/VITAMIN B COMP W-C TABLET PO SCH (17:18)
[2023-12-05 20:00] VITALS: BP 157/86; TEMP 98.5; O2SAT 97
[2023-12-05] MEDS: ATORVASTATIN 10 MG TABLET PO SCH (20:53)
[2023-12-05] MEDS ORDERED: IV NORMAL SALINE 250 ML IV ONE (21:31)
[2023-12-05] MEDS ORDERED: SWABABLE VALVE TRANSFER SET EA MC ONE (21:31)
[2023-12-05] MEDS ORDERED: IOHEXOL 350 100 ML INFUS..BTL ONE (21:31)
[2023-12-06 05:00] VITALS: BP 168/96; TEMP 98.7; O2SAT 98
[2023-12-06] MEDS: PANTOPRAZOLE SODIUM 40 MG TABLET.DR PO SCH (06:13)
[2023-12-06] MEDS: AMLODIPINE 5 MG TABLET PO SCH (06:13)
[2023-12-06] MEDS ORDERED: hydrALAZINE HCL 20 MG/1 ML VIAL IV PRN (06:30)
[2023-12-06] MEDS: CALCIUM ACETATE 667 MG CAP/TAB PO SCH ×3 (09:02→18:42)
[2023-12-06] MEDS: MIRALAX 17 GM POWD.PACK PO SCH (09:02)
[2023-12-06] MEDS: AMIODARONE HCL 200 MG TABLET PO SCH (09:02)
[2023-12-06] MEDS: DOCUSATE SODIUM 100 MG CAPSULE PO SCH (09:02)
[2023-12-06] MEDS: GABAPENTIN 100 MG CAPSULE PO SCH (09:02)
[2023-12-06] MEDS: ASPIRIN 81 MG TAB.CHEW PO SCH (09:02)
[2023-12-06] MEDS: FINASTERIDE 5 MG TABLET PO SCH (09:02)
[2023-12-06 09:03] VITALS: BP 142/85; TEMP 98.5; O2SAT 97
[2023-12-06] MEDS: METOPROLOL TARTRATE 25 MG TABLET PO SCH (09:13)
[2023-12-06] MEDS ORDERED: AMLODIPINE 5 MG TABLET PO ONE (09:15)
[2023-12-06 11:55] VITALS: BP 155/87; TEMP 98.2; O2SAT 97
[2023-12-06 12:11] LABS: HEPATITIS B SURFACE AB, QUAL Non Reactive (.); HEPATITIS B SURFACE AG Negative (Negative)
[2023-12-06 16:00] VITALS: BP 137/83; TEMP 97.5; O2SAT 98
[2023-12-06] MEDS: FOLIC ACID/VITAMIN B COMP W-C TABLET PO SCH (18:42)
[2023-12-07] MEDS ORDERED: AMLODIPINE 5 MG TABLET PO SCH (09:00)
== END 2023-12-06 19:00 | DRG 553 ==
LOC: ER 11:53 → TRANSITION 12-04 14:29 → MED 12-04 15:28
PROVIDERS: ADMIT Nurse Practitioner Acute Care; ATTEND Nurse Practitioner Acute Care
PROC: 5A1D70Z Performance of Urinary Filtration, Intermittent, Less than 6 Hours Per Day (ICD-10-PCS; principal; 2023-12-04)
DX: M16.11 Unilateral primary osteoarthritis, right hip (principal); N18.6 End stage renal disease; I13.2 Hypertensive heart and chronic kidney disease with heart failure and with stage 5 chronic kidney disease, or end stage renal disease; E44.0 Moderate protein-calorie malnutrition; I50.22 Chronic systolic (congestive) heart failure; N13.30 Unspecified hydronephrosis; E11.42 Type 2 diabetes mellitus with diabetic polyneuropathy; M79.661 Pain in right lower leg; E11.22 Type 2 diabetes mellitus with diabetic chronic kidney disease; I50.9 Heart failure, unspecified; Z99.2 Dependence on renal dialysis; I25.10 Atherosclerotic heart disease of native coronary artery without angina pectoris; M81.8 Other osteoporosis without current pathological fracture; Z86.16 Personal history of COVID-19; K40.90 Unilateral inguinal hernia, without obstruction or gangrene, not specified as recurrent; N40.0 Benign prostatic hyperplasia without lower urinary tract symptoms; Z85.828 Personal history of other malignant neoplasm of skin; Z79.899 Other long term (current) drug therapy; K57.90 Diverticulosis of intestine, part unspecified, without perforation or abscess without bleeding; E78.5 Hyperlipidemia, unspecified; M50.30 Other cervical disc degeneration, unspecified cervical region; M15.9 Polyosteoarthritis, unspecified; G31.84 Mild cognitive impairment of uncertain or unknown etiology; F32.A Depression, unspecified; D64.9 Anemia, unspecified; I25.5 Ischemic cardiomyopathy; I48.91 Unspecified atrial fibrillation; I25.2 Old myocardial infarction; M89.8X9 Other specified disorders of bone, unspecified site; Z98.62 Peripheral vascular angioplasty status
CPT/HCPCS: 36415; 72170; 73560; 83735; 84100; 85025; 85730; 86706; 87340; 90937; G0378; J0360; J1644; J7040; Q9967